=== PATIENT | female | born 1965 | race Caucasian/White ===

== ENCOUNTER 2020-12-20 15:11 | Inpatient (IN) ==
[2020-12-20 15:34] VITALS: BMI 46.0
[2020-12-20] MEDS ORDERED: NS 1000 ML 1,000 ML IV ONE (15:36)
[2020-12-20] MEDS ORDERED: NS 1000 ML 1,000 ML ONE ×2 (15:44→17:52)
[2020-12-20] MEDS ORDERED: APRESOLINE INJ 20 MG VIAL IVP ONE ×2 (16:00→17:48)
[2020-12-20 16:01] LABS: BILIRUBIN,URINE NEGATIVE (NEGATIVE); BLOOD/HEMOGLOBIN,URINE 1+ (NEGATIVE); GLUCOSE, URINE NEGATIVE (NEGATIVE); KETONES,URINE NEGATIVE (NEGATIVE); LEUKOCYTE ESTERASE ,URINE NEGATIVE (NEGATIVE); NITRITES,URINE NEGATIVE (NEGATIVE); PROTEIN,URINE 1+ (NEGATIVE); UROBILINOGEN,URINE NORMAL (NORMAL)
[2020-12-20 16:07] LABS: APPEARANCE,URINE CLEAR (CLEAR); COLOR,URINE YELLOW (YELLOW)
[2020-12-20 16:08] LABS: AMORPHOUS SEDIMENT,UR TRACE /HPF (NEGATIVE); BACTERIA,URINE NEGATIVE /HPF (NEGATIVE); SQUAMOUS EPITHELIAL CELL,UR RARE /HPF (NEGATIVE)
[2020-12-20 16:09] LABS: BASOPHILS % (AUTO) 0.5 % (0.2-1.0); EOSINOPHILS % (AUTO) 0.5 % (0.9-2.9); HEMATOCRIT 39.9 % (36.0-47.0); HEMOGLOBIN 13.1 g/dL (12.0-16.0); LYMPHOCYTES # (AUTO) 1.8 X10^3/uL (1.3-2.9); LYMPHOCYTES % (AUTO) 17.7 % (21.0-51.0); MEAN CORPUSCULAR HEMOGLOBIN 30.3 pg (27.0-34.0); MEAN CORPUSCULAR HGB CONC 32.9 g/dL (33.0-35.0); MEAN PLATELET VOLUME 7.1 fL (7.4-11.0); MONOCYTES # (AUTO) 0.6 x10^3/uL (0.3-0.8); MONOCYTES % (AUTO) 6.1 % (0.0-13.0); NEUTROPHILS # (AUTO) 7.7 x10^3/uL (2.2-4.8); NEUTROPHILS % (AUTO) 75.2 % (42.0-75.0); PLATELET COUNT 289 X10^3/uL (150.0-450.0); RED BLOOD COUNT 4.34 X10^6/uL (3.5-5.4); RED CELL DISTRIBUTION WIDTH 15.1 % (11.6-16.5); WHITE BLOOD COUNT 10.3 X10^3/uL (3.6-10.0)
[2020-12-20] MEDS ORDERED: APRESOLINE INJ 20 MG VIAL ONE ×2 (16:11→17:49)
--- NOTE | 2020-12-20 16:16 | RAD ---
HISTORYHistory of abdominal pain and nauseaSTUDYACUTE ABDOMEN SERIES four viewsCOMPARISONNoneFINDINGSChest: Mild cardiomegaly mediastinum within normal limits, lungs are well expanded and clear, no focal alveolar radiopacitiesAbdomen two views there is no evidence free air. There are multiple air containing central small bowel loops, there is still air throughout the colon, there is a copper T in the lower pelvis, surgical clips in the left upper quadrant, status post cholecystectomyIMPRESSIONNo acute cardiopulmonary disease no free-air.Central prominent small bowel loops, still air in the colon consider early SBO or partial SBO.Electronically signed by: Sophia Ghosh (Dec 20, 2020 16:13:54)
[2020-12-20] MEDS ORDERED: ZOFRAN INJ 4 MG VIAL ONE ×2 (16:17→21:12)
[2020-12-20 16:21] LABS: ALANINE AMINOTRANSFERASE 21 Units/L (12-78); ALBUMIN 3.8 g/dL (3.4-5.0); ALKALINE PHOSPHATASE 78 Units/L (46-116); AMYLASE 35 Units/L (25-115); ASPARTATE AMINO TRANSFERASE 15 Units/L (15-37); BLOOD UREA NITROGEN 10 mg/dL (7-18); CALCIUM 9.2 mg/dL (8.5-10.1); CARBON DIOXIDE 30.6 mmol/L (21-32); CHLORIDE 101 mmol/L (98-107); COR NA(FOR HYPERGLY) 142 mmol/L (136-145); LIPASE 84 Units/L (73-393); SODIUM 141 mmol/L (136-145); TOTAL PROTEIN 7.7 g/dL (6.4-8.2); eGFR NON BLACK RACES > 60 (>60)
[2020-12-20] MEDS ORDERED: ZOFRAN INJ 4 MG VIAL IVP ONE ×2 (16:27→20:39)
--- NOTE | 2020-12-20 16:51 | ED.ABDFE ---
HPI Time Seen Time Seen by Provider: 12/20/20 15:36 PCP Primary Care Physician: NFD Complaint Chief Complaint:: Patient came to ER reports abdominal pain and nausea onset this am. Patient reports no BM in 24 hours and has hx constipation. Self Treatment fo Chief Complaint: none COVID-19 Coronavirus risk:travel/contact w/high risk person: No Has patient experienced Coronavirus symptoms: No Source History Provided: Patient and EMS Mode of arrival Mode of Arrival: EMS Timing Onset of Chief Complaint: 12/20/20 PMH PMH Past Medical History: Yes Past Medical History: Hypertension Past Surgical History: Yes Surgical History: and Cholecystectomy Past Surgical History Comment: gastric bypass, binh removed Family History History of Family Medical Conditions: No Family Medical History: Hypertension Social History Type of Tobacco Use: None Alcohol Use: None Do you use any recreational Drugs:: No Lives With: Family Lives Where: Home Travel Risk Coronavirus risk:travel/contact w/high risk person: No Has patient experienced Coronavirus symptoms: No Infectious screening In the last 2 months have you had wt loss of >10#?: NO Have you had fever, night sweats or hemotysis?: No Have you traveled outside the country in the last 6 months?: No Isolation: Standard ROS Review of Systems Constitutional: See HPI PE Vital Signs Vitals: Temperature 97.8 F Pulse Rate 77 Respiratory Rate 21 Blood Pressure [Left Arm] 172/78 Blood Pressure 184/87 O2 Sat by Pulse Oximetry 96 General Limitations: No Limitations General Appearance: Alert and In No Apparent Distress Head Head Exam: Normal Inspection, Atraumatic and Normocephalic Eyes Eye exam: Normal Appearance and EOMI ENT ENT Exam: Normal Exam Neck Neck Exam: Normal Inspection and Trachea Midline Chest Chest Inspection: Normal Inspection and Symmetric Chest Wall Rise Respiratory Respiratory Exam: Normal Lung Sounds Bilat Respiratory Exam: Bilateral: Clear to Auscultation Cardiovascular Cardiovascular Exam: Regular Rate, Normal Rhythm and Normal Heart Sounds Abdominal Exam Abdominal Exam: Normal Inspection, Soft and Tenderness Abdominal Tenderness: Diffuse and Moderate Back Back Exam: Normal Inspection Extremeties Extremities Exam: Normal Inspection and Full ROM Neurologic Neurological Exam: Alert and Oriented X3 Psychiatric Psychiatric Exam: Normal Affect and Normal Mood Skin Skin Exam: Warm, Dry and Intact COURSE Treatment Treatment: Patient reported that she "felt funny" shortly after IV hydralazine given. Will continue to monitor. EKG without any acute changes. Patient continues to complain of nausea despite intervention in the ED. No episodes of vomiting since being in the ED. Given x-ray findings, CT abd/pe ordered. Patient is slow to drink contrast needed for the study, citing that she is "so nauseated." Will continue to encourage patient to drink contrast. Consultation Consultation Comments: Spoke with Dr. Haley, who accepts patient to his service for admission for bowel obstruction. ROR Labs Reviewed Result Diagrams: 12/20/20 16:03 12/20/20 16:03 Laboratory: WBC 10.3 X10^3/uL (3.6-10.0) H 12/20/20 16:03 RBC 4.34 X10^6/uL (3.5-5.4) 12/20/20 16:03 Hgb 13.1 g/dL (12.0-16.0) 12/20/20 16:03 Hct 39.9 % (36.0-47.0) 12/20/20 16:03 MCV 92.0 fL (80.0-100.0) 12/20/20 16:03 MCH 30.3 pg (27.0-34.0) 12/20/20 16:03 MCHC 32.9 g/dL (33.0-35.0) L 12/20/20 16:03 RDW 15.1 % (11.6-16.5) 12/20/20 16:03 Plt Count 289 X10^3/uL (150.0-450.0) 12/20/20 16:03 MPV 7.1 fL (7.4-11.0) L 12/20/20 16:03 Neut % (Auto) 75.2 % (42.0-75.0) H 12/20/20 16:03 Lymph % (Auto) 17.7 % (21.0-51.0) L 12/20/20 16:03 [place] % (Auto) 6.1 % (0.0-13.0) 12/20/20 16:03 Eos % (Auto) 0.5 % (0.9-2.9) L 12/20/20 16:03 Baso % (Auto) 0.5 % (0.2-1.0) 12/20/20 16:03 Neut # (Auto) 7.7 x10^3/uL (2.2-4.8) H 12/20/20 16:03 Lymph # (Auto) 1.8 X10^3/uL (1.3-2.9) 12/20/20 16:03 [place] # (Auto) 0.6 x10^3/uL (0.3-0.8) 12/20/20 16:03 Eos # (Auto) 0.0 x10^3/uL (0.0-0.2) 12/20/20 16:03 Baso # (Auto) 0.0 X10^3/uL (0.0-0.1) 12/20/20 16:03 Absolute Nucleated RBC 0.0 /100WBC 12/20/20 16:03 Sodium 141 mmol/L (136-145) 12/20/20 16:03 Corrected Sodium 142 mmol/L (136-145) 12/20/20 16:03 Potassium 3.1 mmol/L (3.5-5.1) L 12/20/20 16:03 Chloride 101 mmol/L (98-107) 12/20/20 16:03 Carbon Dioxide 30.6 mmol/L (21-32) 12/20/20 16:03 BUN 10 mg/dL (7-18) 12/20/20 16:03 Creatinine 0.70 mg/dL (0.55-1.02) 12/20/20 16:03 Est GFR (MDRD) Af Amer > 60 (>60) 12/20/20 16:03 Est GFR (MDRD) Non-Af > 60 (>60) 12/20/20 16:03 Glucose 131 mg/dL (65-99) H 12/20/20 16:03 Calcium 9.2 mg/dL (8.5-10.1) 12/20/20 16:03 Corrected Calcium TNP 12/20/20 16:03 Total Bilirubin 0.30 mg/dL (0.2-1.0) 12/20/20 16:03 AST 15 Units/L (15-37) 12/20/20 16:03 ALT 21 Units/L (12-78) 12/20/20 16:03 Alkaline Phosphatase 78 Units/L (46-116) 12/20/20 16:03 Creatine Kinase 49 Units/L (26-192) 12/20/20 16:03 CK-MB (CK-2) 1.2 ng/mL (0-4.0) 12/20/20 16:03 CK/CKMB % Calc 2.5 % (<4) 12/20/20 16:03 Troponin I 0.02 ng/mL (0-1.5) 12/20/20 16:03 Total Protein 7.7 g/dL (6.4-8.2) 12/20/20 16:03 Albumin 3.8 g/dL (3.4-5.0) 12/20/20 16:03 Globulin 3.9 g/dL (2.5-4.5) 12/20/20 16:03 Albumin/Globulin Ratio 1.0 Ratio (1.1-2.1) L 12/20/20 16:03 Amylase 35 Units/L (25-115) 12/20/20 16:03 Lipase 84 Units/L (73-393) 12/20/20 16:03 Specimen Type Catherized urine 12/20/20 15:39 Urine Color Yellow (YELLOW) 12/20/20 15:39 Urine Appearance Clear (CLEAR) 12/20/20 15:39 Urine pH 8.0 (5.0 - 8.0) 12/20/20 15:39 Ur Specific [place] 1.015 (1.000-1.030) 12/20/20 15:39 Urine Protein 1+ (NEGATIVE) 12/20/20 15:39 Urine Glucose (UA) Negative (NEGATIVE) 12/20/20 15:39 Urine Ketones Negative (NEGATIVE) 12/20/20 15:39 Urine Occult Blood 1+ (NEGATIVE) 12/20/20 15:39 Urine Nitrite Negative (NEGATIVE) 12/20/20 15:39 Urine Bilirubin Negative (NEGATIVE) 12/20/20 15:39 Urine Urobilinogen Normal (NORMAL) 12/20/20 15:39 Ur Leukocyte Esterase Negative (NEGATIVE) 12/20/20 15:39 Urine RBC 3-5 /HPF (0-3) A 12/20/20 15:39 Urine WBC None seen /HPF (0-5) 12/20/20 15:39 Ur Squamous Epith Cells Rare /HPF (NEGATIVE) 12/20/20 15:39 Amorphous Sediment Trace /HPF (NEGATIVE) 12/20/20 15:39 Urine Bacteria Negative /HPF (NEGATIVE) 12/20/20 15:39 Ur Culture Indicated? No/not indicated 12/20/20 15:39 XRAY X-ray Results: HISTORY History of abdominal pain and nausea STUDY ACUTE ABDOMEN SERIES four views COMPARISON None FINDINGS Chest: Mild cardiomegaly mediastinum within normal limits, lungs are well expanded and clear, no focal alveolar radiopacities Abdomen two views there is no evidence free air. There are multiple air c ontaining central small bowel loops, there is still air throughout the colon, there is a copper T in the lower pelvis, surgical clips in the left upper quadrant, status post cholecystectomy IMPRESSION No acute cardiopulmonary disease no free-air. Central prominent small bowel loops, still air in the colon consider early SBO or partial SBO. Electronically signed by: Sophia Ghosh (Dec 20, 2020 16:13:54) Opioid Opioid Risk Tool Age ([place] box if 16-45): No History of Preadolescent Sexual Abuse: No Total: 0 Total Score Risk Category: Low Risk Copyright: Valeriy RANDHAWA predicting aberrant behaviors Diagnosis Discharge Problem: Bowel obstruction Qualifiers: Intestinal obstruction type: unspecified Intestinal obstruction extent: unspecified extent Qualified Code(s): K56.609 - Unspecified intestinal obstruction, unspecified as to partial versus complete obstruction
[2020-12-20 17:08] LABS: CKMB % 2.5 % (<4); CREATINE KINASE MB 1.2 ng/mL (0-4.0); TROPONIN I 0.02 ng/mL (0-1.5)
[2020-12-20] MEDS ORDERED: PHENERGAN INJ 25 MG IM ONE ×2 (18:06→18:08)
[2020-12-20] MEDS ORDERED: NS 100 ML IV 100 ML IV ONE (20:26)
--- NOTE | 2020-12-20 22:26 | CT ---
HISTORYPatient came to ER reports abdominal pain and nausea onset this am. Patient reports no BM in 24 hours and has hx constipation.STUDYABDOMEN/PELVIS WITH CONCOMPARISONNoneTECHNIQUEAxial CT images of the abdomen and pelvis were obtained after the administration of IV contrast and reformatted into coronal and sagittal planes for further evaluation.Radiation dose: 1475.10 mGy-cm total DLPFINDINGSAtelectasis in the lung bases.Bilateral breast implants.Status post gastric bypass.Solid visceral organs of the upper abdomen are unremarkable.Status post cholecystectomy.No clinically significant biliary dilatation.Atherosclerotic changes to the abdominal aorta and iliac vessels without aneurysm.Sub cm low-attenuation foci in the anterior interpolar region of the left kidney which is likely a cyst but is too small to characterize.Otherwise, unremarkable appearance of the kidneys.Large lower anterior abdominal wall hernia containing fat without inflammatory changes.Large anterior abdominal wall hernia also contains a partial loop of large bowel; with mild mechanical obstruction.Inflammatory changes surrounding the sigmoid colon adjacent to the anterior abdominal wall hernia as well as mild colonic wall thickening in the large bowel distal to the anterior abdominal wall hernia.Unremarkable appearance of the urinary bladder.Imaged reproductive structures are unremarkable; IUD in the endometrial canal.Unremarkable appearance of the large and small bowel.No evidence of acute appendicitis.No pneumoperitoneum.No significant fluid collection.No adenopathy.No acute osseous abnormality.Mild to moderate degenerative disc disease in the thoracolumbar spine without vertebral body height loss.Moderate facet degenerative changes from L3-S1.IMPRESSIONLarge lower anterior abdominal wall containing a large amount of fat without inflammatory changes. There is also a single loop of large bowel in the left aspect of the hernia which results in a mild mechanical obstruction. There are inflammatory changes adjacent to the sigmoid colon immediately proximal to the hernia as well as mild colonic wall thickening distal to the hernia. Findings could represent the sequela of ischemia.Electronically signed by: Shivam Ramesh (Dec 20, 2020 22:24:57)
[2020-12-20] MEDS ORDERED: TYLENOL 325 MG TAB PO PRN (22:54)
[2020-12-20] MEDS ORDERED: MILK OF MAGNESIA PO PRN (22:54)
[2020-12-20] MEDS: NS 1000 ML 1,000 ML IV SCH (23:10)
[2020-12-21] MEDS: PHENERGAN INJ 25 MG IM PRN ×2 (01:55→08:44)
[2020-12-21] MEDS ORDERED: NS 1000 ML 1,000 ML ONE (03:15)
[2020-12-21] MEDS ORDERED: MORPHINE SULFATE INJ 2 MG INJ ONE (03:17)
[2020-12-21] MEDS ORDERED: ZOFRAN INJ 4 MG VIAL ONE (03:18)
[2020-12-21] MEDS: ZOFRAN INJ 4 MG VIAL IVP PRN ×3 (03:18→21:54)
[2020-12-21] MEDS: MORPHINE SULFATE INJ 2 MG INJ IVP PRN ×3 (03:21→21:53)
[2020-12-21] MEDS: NS 1000 ML 1,000 ML IV SCH ×3 (03:25→20:20)
--- NOTE | 2020-12-21 03:59 | RAD ---
PROCEDURE: Chest X-ray 1 View .HISTORY: NG TUBE PALCEMENT .TECHNIQUE: AP view .COMPARISON: 12/20/2020.TECHNICAL QUALITY: Satisfactory .FINDINGS:NG tube tip in the fundus of the stomach in good position.Heart size upper limits of normal and unchanged from previous study.Mediastinum is unremarkable.Normal central vascularity.No pulmonary consolidation, masses, pleural fluid, or pneumothorax.IMPRESSION:1. Good NG-tube placement.2. Unchanged heart size upper limits of normal.Electronically signed by: Vamsi Pham (Dec 21, 2020 03:56:58)
[2020-12-21 06:44] LABS: BASOPHILS # (AUTO) 0.1 X10^3/uL (0.0-0.1); BASOPHILS % (AUTO) 0.5 % (0.2-1.0); EOSINOPHILS % (AUTO) 0.1 % (0.9-2.9); HEMATOCRIT 43.2 % (36.0-47.0); HEMOGLOBIN 13.9 g/dL (12.0-16.0); LYMPHOCYTES # (AUTO) 1.2 X10^3/uL (1.3-2.9); LYMPHOCYTES % (AUTO) 9.5 % (21.0-51.0); MEAN CORPUSCULAR HEMOGLOBIN 29.6 pg (27.0-34.0); MEAN CORPUSCULAR HGB CONC 32.3 g/dL (33.0-35.0); MEAN CORPUSCULAR VOLUME 91.8 fL (80.0-100.0); MEAN PLATELET VOLUME 7.3 fL (7.4-11.0); MONOCYTES # (AUTO) 0.7 x10^3/uL (0.3-0.8); MONOCYTES % (AUTO) 5.1 % (0.0-13.0); NEUTROPHILS # (AUTO) 11.1 x10^3/uL (2.2-4.8); NEUTROPHILS % (AUTO) 84.8 % (42.0-75.0); PLATELET COUNT 326 X10^3/uL (150.0-450.0); RED BLOOD COUNT 4.71 X10^6/uL (3.5-5.4); RED CELL DISTRIBUTION WIDTH 15.2 % (11.6-16.5); WHITE BLOOD COUNT 13.1 X10^3/uL (3.6-10.0)
[2020-12-21 07:05] LABS: ALANINE AMINOTRANSFERASE 22 Units/L (12-78); ALBUMIN 3.8 g/dL (3.4-5.0); ALKALINE PHOSPHATASE 81 Units/L (46-116); ASPARTATE AMINO TRANSFERASE 17 Units/L (15-37); BLOOD UREA NITROGEN 7 mg/dL (7-18); CALCIUM 9.2 mg/dL (8.5-10.1); CARBON DIOXIDE 30.9 mmol/L (21-32); CHLORIDE 99 mmol/L (98-107); CREATININE 0.65 mg/dL (0.55-1.02); SODIUM 137 mmol/L (136-145); TOTAL PROTEIN 7.8 g/dL (6.4-8.2); eGFR NON BLACK RACES > 60 (>60)
[2020-12-21] MEDS ORDERED: PHENERGAN INJ 25 MG IM ONE (08:40)
[2020-12-21] MEDS ORDERED: POTASSIUM CHL 60 MEQ/NS 0.45% 500 ML IV PRN (10:08)
[2020-12-21] MEDS ORDERED: MICRO K EXTEN CAP 10 MEQ PO PRN (10:08)
[2020-12-21] MEDS ORDERED: K-DUR TAB 20 MEQ PO PRN (10:08)
[2020-12-21] MEDS ORDERED: POTASSIUM CHL 40 MEQ/NS 0.45% 500 ML IV PRN (10:08)
[2020-12-21] MEDS ORDERED: K-RIDER 10 MEQ/NS 100 ML 10 MEQ/100 ML BAG IV PRN (10:08)
[2020-12-21] MEDS ORDERED: POTASSIUM CHLORIDE LIQ 20 MEQ UDC PO PRN (10:08)
[2020-12-21] MEDS ORDERED: KLOR-CON PO PRN (10:08)
--- NOTE | 2020-12-21 10:59 | RAD ---
HISTORYNausea, pain, obstructionSTUDYKUBCOMPARISONCT abdomen December 20, 2020FINDINGSThere is mild gaseous dilatation of scattered segments of small bowel and colon. No localized bowel distention is seen. There is no evidence for mass or ascites. Surgical clips right upper quadrant.IMPRESSIONFindings described are most consistent with a mild nonobstructing ileus. Partial bowel obstruction could produce similar findings, as suggested on recent CT. Continued follow-up suggested.Electronically signed by: HERMES JEFFERSON (Dec 21, 2020 10:56:52)
[2020-12-21] MEDS ORDERED: APRESOLINE TAB 10 MG PO SCH (11:00)
[2020-12-21] MEDS: ZESTRIL TAB 10 MG PO SCH (11:31)
[2020-12-21] MEDS: MAGNESIUM SULFATE 1 GRAM/100 mL PREMIX 1 GM/100 ML BAG IV PRN ×2 (11:31→12:52)
--- NOTE | 2020-12-21 12:28 | DR.H&P ---
H&P History & Physical for Day of: H&P Date: 12/21/20 Chief Complaint Chief Complaint: Abdominal pain Allergies Allergies Allergy/AdvReac Type Severity Reaction Status Date / Time No Known Drug Allergies Allergy Verified 09/08/18 16:02 History of Present Illness History of Present Illness: Pt is a 55 year old female admitted for incarcerated incisional hernia and partial bowel obstruction. Consulted by general surgery for medical management. Pt has history of hypertension that she does not regularly follow with a pcp outpatient. She used to take lisinopril in the past. Patient's SBP was noted to be in the 180-200s. She did receive IV hydralazine 10 mg in the ED. Labs: WBC 13.1 Hgb 13.9 K 3.1 BUN/Cr: 7/0.65 Glucose 110 Plan: will resume lisinopril 10 mg, add amlodipine 10mg. No plan for surgery at this time, Dr Garcia recommended conservative treatment. Patient will need additional pulmonary and cardiac work up prior to surgical intervention. Replace K. Monitor AM labs. Continue pain control. Past Medical History Past Medical History: Hypertension Additional Medical History: Obesity Past Surgical History Surgical History: Cholecystectomy, [facility] Surgery, Weight Loss Surgery and Other Family History Family Medical History: Hypertension Social History Type of Tobacco Use: None Alcohol Use: None Drug Use: None Medications Home Medications: No Known Drug Allergies Allergy (Verified 09/08/18 16:02) CONTINUE taking the following medications NK 12/21/20 [History] Labs Result Diagrams: 12/21/20 06:27 12/21/20 06:27 Labs: Laboratory WBC 13.1 X10^3/uL (3.6-10.0) H 12/21/20 06:27 RBC 4.71 X10^6/uL (3.5-5.4) 12/21/20 06:27 Hgb 13.9 g/dL (12.0-16.0) 12/21/20 06:27 Hct 43.2 % (36.0-47.0) 12/21/20 06:27 MCV 91.8 fL (80.0-100.0) 12/21/20 06:27 MCH 29.6 pg (27.0-34.0) 12/21/20 06:27 MCHC 32.3 g/dL (33.0-35.0) L 12/21/20 06:27 RDW 15.2 % (11.6-16.5) 12/21/20 06:27 Plt Count 326 X10^3/uL (150.0-450.0) 12/21/20 06:27 MPV 7.3 fL (7.4-11.0) L 12/21/20 06:27 Neut % (Auto) 84.8 % (42.0-75.0) H 12/21/20 06:27 Lymph % (Auto) 9.5 % (21.0-51.0) L 12/21/20 06:27 [place] % (Auto) 5.1 % (0.0-13.0) 12/21/20 06:27 Eos % (Auto) 0.1 % (0.9-2.9) L 12/21/20 06:27 Baso % (Auto) 0.5 % (0.2-1.0) 12/21/20 06:27 Neut # (Auto) 11.1 x10^3/uL (2.2-4.8) H 12/21/20 06:27 Lymph # (Auto) 1.2 X10^3/uL (1.3-2.9) L 12/21/20 06:27 [place] # (Auto) 0.7 x10^3/uL (0.3-0.8) 12/21/20 06:27 Eos # (Auto) 0.0 x10^3/uL (0.0-0.2) 12/21/20 06:27 Baso # (Auto) 0.1 X10^3/uL (0.0-0.1) 12/21/20 06:27 Absolute Nucleated RBC 0.0 /100WBC 12/21/20 06:27 Sodium 137 mmol/L (136-145) 12/21/20 06:27 Corrected Sodium TNP 12/21/20 06:27 Potassium 3.1 mmol/L (3.5-5.1) L 12/21/20 06:27 Chloride 99 mmol/L (98-107) 12/21/20 06:27 Carbon Dioxide 30.9 mmol/L (21-32) 12/21/20 06:27 BUN 7 mg/dL (7-18) 12/21/20 06:27 Creatinine 0.65 mg/dL (0.55-1.02) 12/21/20 06:27 Est GFR (MDRD) Af Amer > 60 (>60) 12/21/20 06:27 Est GFR (MDRD) Non-Af > 60 (>60) 12/21/20 06:27 Glucose 110 mg/dL (65-99) H 12/21/20 06:27 Calcium 9.2 mg/dL (8.5-10.1) 12/21/20 06:27 Corrected Calcium TNP 12/21/20 06:27 Magnesium 1.8 mg/dL (1.7-2.9) 12/21/20 06:27 Total Bilirubin 0.40 mg/dL (0.2-1.0) 12/21/20 06:27 AST 17 Units/L (15-37) 12/21/20 06:27 ALT 22 Units/L (12-78) 12/21/20 06:27 Alkaline Phosphatase 81 Units/L (46-116) 12/21/20 06:27 Creatine Kinase 49 Units/L (26-192) 12/20/20 16:03 CK-MB (CK-2) 1.2 ng/mL (0-4.0) 12/20/20 16:03 CK/CKMB % Calc 2.5 % (<4) 12/20/20 16:03 Troponin I 0.02 ng/mL (0-1.5) 12/20/20 16:03 Total Protein 7.8 g/dL (6.4-8.2) 12/21/20 06:27 Albumin 3.8 g/dL (3.4-5.0) 12/21/20 06:27 Globulin 4.0 g/dL (2.5-4.5) 12/21/20 06:27 Albumin/Globulin Ratio 1.0 Ratio (1.1-2.1) L 12/21/20 06:27 Amylase 35 Units/L (25-115) 12/20/20 16:03 Lipase 84 Units/L (73-393) 12/20/20 16:03 Specimen Type Catherized urine 12/20/20 15:39 Urine Color Yellow (YELLOW) 12/20/20 15:39 Urine Appearance Clear (CLEAR) 12/20/20 15:39 Urine pH 8.0 (5.0 - 8.0) 12/20/20 15:39 Ur Specific [place] 1.015 (1.000-1.030) 12/20/20 15:39 Urine Protein 1+ (NEGATIVE) 12/20/20 15:39 Urine Glucose (UA) Negative (NEGATIVE) 12/20/20 15:39 Urine Ketones Negative (NEGATIVE) 12/20/20 15:39 Urine Occult Blood 1+ (NEGATIVE) 12/20/20 15:39 Urine Nitrite Negative (NEGATIVE) 12/20/20 15:39 Urine Bilirubin Negative (NEGATIVE) 12/20/20 15:39 Urine Urobilinogen Normal (NORMAL) 12/20/20 15:39 Ur Leukocyte Esterase Negative (NEGATIVE) 12/20/20 15:39 Urine RBC 3-5 /HPF (0-3) A 12/20/20 15:39 Urine WBC None seen /HPF (0-5) 12/20/20 15:39 Ur Squamous Epith Cells Rare /HPF (NEGATIVE) 12/20/20 15:39 Amorphous Sediment Trace /HPF (NEGATIVE) 12/20/20 15:39 Urine Bacteria Negative /HPF (NEGATIVE) 12/20/20 15:39 Ur Culture Indicated? No/not indicated 12/20/20 15:39 SARS CoV-2 RNA Rapid ARA Negative (NEGATIVE) 12/20/20 22:51 Review of Systems Constitutional: No Symptoms Reported Eyes: No Symptoms Reported ENT: No Symptoms Reported Respiratory: No Symptoms Reported Cardiovascular: No Symptoms Reported Gastrointestinal: Nausea and Abdominal Pain Genitourinary: No Symptoms Reported Musculoskeletal: No Symptoms Reported Skin: No Symptoms Reported Neurological: No Symptoms Reported Physical Exam Vital Signs: Temperature 98.5 F Pulse Rate [Left] 98 Pulse Rate 74 Respiratory Rate 20 Blood Pressure [Right Arm] 186/99 Blood Pressure [Left Arm] 172/78 Blood Pressure 200/94 O2 Sat by Pulse Oximetry 94 Oriented: Normal Eyes: Normal Ear: Normal Nose: Normal Throat: Normal Respiratory: Clear Throughout Cardiovascular: Normal : Normal Auscultation: Bowel Sounds: Normal Palpation: Other (palpable LLQ hernia) Tenderness: Normal Skin: Normal Musculoskeletal: Normal Psychiatric: Normal Mood Description: Calm Speech Pattern: Clear Assessment/Plan (1) Hypertension: Status: Acute Plan: Will start on lisinopril and norvasc. (2) Incarcerated hernia: Status: Acute Plan: Surgery following (3) Bowel obstruction: Qualifiers: Intestinal obstruction extent: unspecified extent Intestinal obstructio n type: unspecified Qualified Code(s): K56.609 - Unspecified intestinal obstruction, unspecified as to partial versus complete obstruction Status: Acute (4) Obesity: Status: Acute Review H&P Reviewed: Yes Patient was examined?: Yes
[2020-12-21] MEDS: NORVASC TAB 10 MG PO SCH (13:05)
[2020-12-22] MEDS: PHENERGAN INJ 25 MG IM PRN (01:10)
[2020-12-22] MEDS: NS 1000 ML 1,000 ML IV SCH (05:36)
[2020-12-22] MEDS: ZOFRAN INJ 4 MG VIAL IVP PRN (05:50)
[2020-12-22 06:24] LABS: BASOPHILS % (AUTO) 0.2 % (0.2-1.0); EOSINOPHILS % (AUTO) 0.1 % (0.9-2.9); HEMATOCRIT 40.8 % (36.0-47.0); HEMOGLOBIN 13.1 g/dL (12.0-16.0); LYMPHOCYTES # (AUTO) 1.8 X10^3/uL (1.3-2.9); LYMPHOCYTES % (AUTO) 17.8 % (21.0-51.0); MEAN CORPUSCULAR HEMOGLOBIN 29.7 pg (27.0-34.0); MEAN CORPUSCULAR VOLUME 92.9 fL (80.0-100.0); MEAN PLATELET VOLUME 7.5 fL (7.4-11.0); MONOCYTES # (AUTO) 0.7 x10^3/uL (0.3-0.8); NEUTROPHILS # (AUTO) 7.8 x10^3/uL (2.2-4.8); NEUTROPHILS % (AUTO) 74.9 % (42.0-75.0); PLATELET COUNT 338 X10^3/uL (150.0-450.0); RED BLOOD COUNT 4.39 X10^6/uL (3.5-5.4); RED CELL DISTRIBUTION WIDTH 15.4 % (11.6-16.5); WHITE BLOOD COUNT 10.4 X10^3/uL (3.6-10.0)
[2020-12-22 06:38] LABS: ALANINE AMINOTRANSFERASE 19 Units/L (12-78); ALBUMIN 3.5 g/dL (3.4-5.0); ALKALINE PHOSPHATASE 71 Units/L (46-116); ASPARTATE AMINO TRANSFERASE 15 Units/L (15-37); BLOOD UREA NITROGEN 11 mg/dL (7-18); CALCIUM 9.1 mg/dL (8.5-10.1); CARBON DIOXIDE 31.6 mmol/L (21-32); CHLORIDE 104 mmol/L (98-107); CREATININE 0.73 mg/dL (0.55-1.02); MAGNESIUM 2.4 mg/dL (1.7-2.9); SODIUM 141 mmol/L (136-145); TOTAL PROTEIN 7.2 g/dL (6.4-8.2); eGFR NON BLACK RACES > 60 (>60)
[2020-12-22] MEDS: NORVASC TAB 10 MG PO SCH (08:40)
[2020-12-22] MEDS: ZESTRIL TAB 10 MG PO SCH (08:40)
[2020-12-22] MEDS ORDERED: PEPCID 20 MG IV PREMIX* 20 MG/50 ML BAG IV SCH (09:00)
--- NOTE | 2020-12-22 11:26 | PCM.PROG ---
Progress Note Progress Note for Day of Date of Exam: 12/22/20 Subjective Subjective: Pt is a 55 year old female past medical history Hypertension, admitted for incarcerated incisional hernia and partial bowel obstruction. Consulted by general surgery for medical management. This morning patient is resting in bed, no acute events overnight. Yesterday she was started on norvasc 10mg and lisinopril 10mg. Reviewing BP trend yesterday revealed significant improvement and appropriate control of blood pressure. Labs: WBC 10.4, Hgb 13.1, K 3.8, BUN/Cr: 11/0.73 Glucose 94 Plan: Continue lisinopril 10 mg, amlodipine 10mg. No plan for surgery at this time, Dr Garcia recommended conservative treatment. Patient will need additional pulmonary and cardiac work up prior to surgical intervention. Continue to monitor and follow up labs/imaging in the morning. Past Medical Family Social History Past Med/Fam/Surg Hx: No changes since H&P Allergies: Allergies No Known Drug Allergies Allergy (Verified 09/08/18 16:02) Review of Systems ROS: No change since H&P Vital Signs and I&O's Vital Signs: Temperature 98.7 F Pulse Rate [Left] 88 Pulse Rate 74 Respiratory Rate 20 Blood Pressure [Right Arm] 163/75 Blood Pressure [Left Arm] 172/78 Blood Pressure 200/94 O2 Sat by Pulse Oximetry 94 Intake and Output: Intake & Output 12/19/20 12/20/20 12/21/20 12/22/20 23:59 23:59 23:59 23:59 Intake Total 2059 640 / 640 Balance 2059 640 / 640 Physical Exam Oriented: Normal Eyes: Normal Ear: Normal Nose: Normal Throat: Normal Respiratory: Normal Cardiovascular: Normal : Normal Auscultation: Bowel Sounds: Normal Tenderness: Normal Skin: Normal Musculoskeletal: Normal Psychiatric: Normal Mood Description: Calm Speech Pattern: Clear and Appropriate Laboratory and Diagnostics Result Diagrams: 12/22/20 05:26 12/22/20 05:21 Labs: Laboratory WBC 10.4 X10^3/uL (3.6-10.0) H 12/22/20 05:26 RBC 4.39 X10^6/uL (3.5-5.4) 12/22/20 05:26 Hgb 13.1 g/dL (12.0-16.0) 12/22/20 05:26 Hct 40.8 % (36.0-47.0) 12/22/20 05:26 MCV 92.9 fL (80.0-100.0) 12/22/20 05:26 MCH 29.7 pg (27.0-34.0) 12/22/20 05:26 MCHC 32.0 g/dL (33.0-35.0) L 12/22/20 05:26 RDW 15.4 % (11.6-16.5) 12/22/20 05:26 Plt Count 338 X10^3/uL (150.0-450.0) 12/22/20 05:26 MPV 7.5 fL (7.4-11.0) 12/22/20 05:26 Neut % (Auto) 74.9 % (42.0-75.0) 12/22/20 05:26 Lymph % (Auto) 17.8 % (21.0-51.0) L 12/22/20 05:26 [place] % (Auto) 7.0 % (0.0-13.0) 12/22/20 05:26 Eos % (Auto) 0.1 % (0.9-2.9) L 12/22/20 05:26 Baso % (Auto) 0.2 % (0.2-1.0) 12/22/20 05:26 Neut # (Auto) 7.8 x10^3/uL (2.2-4.8) H 12/22/20 05:26 Lymph # (Auto) 1.8 X10^3/uL (1.3-2.9) 12/22/20 05:26 [place] # (Auto) 0.7 x10^3/uL (0.3-0.8) 12/22/20 05:26 Eos # (Auto) 0.0 x10^3/uL (0.0-0.2) 12/22/20 05:26 Baso # (Auto) 0.0 X10^3/uL (0.0-0.1) 12/22/20 05:26 Absolute Nucleated RBC 0.0 /100WBC 12/22/20 05:26 Sodium 141 mmol/L (136-145) 12/22/20 05:21 Corrected Sodium TNP 12/22/20 05:21 Potassium 3.8 mmol/L (3.5-5.1) 12/22/20 05:21 Chloride 104 mmol/L (98-107) 12/22/20 05:21 Carbon Dioxide 31.6 mmol/L (21-32) 12/22/20 05:21 BUN 11 mg/dL (7-18) 12/22/20 05:21 Creatinine 0.73 mg/dL (0.55-1.02) 12/22/20 05:21 Est GFR (MDRD) Af Amer > 60 (>60) 12/22/20 05:21 Est GFR (MDRD) Non-Af > 60 (>60) 12/22/20 05:21 Glucose 94 mg/dL (65-99) 12/22/20 05:21 Calcium 9.1 mg/dL (8.5-10.1) 12/22/20 05:21 Corrected Calcium TNP 12/22/20 05:21 Magnesium 2.4 mg/dL (1.7-2.9) 12/22/20 05:21 Total Bilirubin 0.50 mg/dL (0.2-1.0) 12/22/20 05:21 AST 15 Units/L (15-37) 12/22/20 05:21 ALT 19 Units/L (12-78) 12/22/20 05:21 Alkaline Phosphatase 71 Units/L (46-116) 12/22/20 05:21 Creatine Kinase 49 Units/L (26-192) 12/20/20 16:03 CK-MB (CK-2) 1.2 ng/mL (0-4.0) 12/20/20 16:03 CK/CKMB % Calc 2.5 % (<4) 12/20/20 16:03 Troponin I 0.02 ng/mL (0-1.5) 12/20/20 16:03 Total Protein 7.2 g/dL (6.4-8.2) 12/22/20 05:21 Albumin 3.5 g/dL (3.4-5.0) 12/22/20 05:21 Globulin 3.7 g/dL (2.5-4.5) 12/22/20 05:21 Albumin/Globulin Ratio 0.9 Ratio (1.1-2.1) L 12/22/20 05:21 Amylase 35 Units/L (25-115) 12/20/20 16:03 Lipase 84 Units/L (73-393) 12/20/20 16:03 Specimen Type Catherized urine 12/20/20 15:39 Urine Color Yellow (YELLOW) 12/20/20 15:39 Urine Appearance Clear (CLEAR) 12/20/20 15:39 Urine pH 8.0 (5.0 - 8.0) 12/20/20 15:39 Ur Specific [place] 1.015 (1.000-1.030) 12/20/20 15:39 Urine Protein 1+ (NEGATIVE) 12/20/20 15:39 Urine Glucose (UA) Negative (NEGATIVE) 12/20/20 15:39 Urine Ketones Negative (NEGATIVE) 12/20/20 15:39 Urine Occult Blood 1+ (NEGATIVE) 12/20/20 15:39 Urine Nitrite Negative (NEGATIVE) 12/20/20 15:39 Urine Bilirubin Negative (NEGATIVE) 12/20/20 15:39 Urine Urobilinogen Normal (NORMAL) 12/20/20 15:39 Ur Leukocyte Esterase Negative (NEGATIVE) 12/20/20 15:39 Urine RBC 3-5 /HPF (0-3) A 12/20/20 15:39 Urine WBC None seen /HPF (0-5) 12/20/20 15:39 Ur Squamous Epith Cells Rare /HPF (NEGATIVE) 12/20/20 15:39 Amorphous Sediment Trace /HPF (NEGATIVE) 12/20/20 15:39 Urine Bacteria Negative /HPF (NEGATIVE) 12/20/20 15:39 Ur Culture Indicated? No/not indicated 12/20/20 15:39 SARS CoV-2 RNA Rapid ARA Negative (NEGATIVE) 12/20/20 22:51 Plan (1) Hypertension: Status: Acute Plan: Will start on lisinopril and norvasc. (2) Incarcerated hernia: Status: Acute Plan: Surgery following (3) Bowel obstruction: Status: Acute Qualifiers: Intestinal obstruction extent: unspecified extent Intestinal obstruction type: unspecified Qualified Code(s): K56.609 - Unspecified in testinal obstruction, unspecified as to partial versus complete obstruction (4) Obesity: Status: Acute
[2020-12-22] MEDS ORDERED: PROTONIX INJ 40 MG VIAL IVP SCH (12:00)
[2020-12-22 12:06] LABS: CHOL/HDL RATIO 2.8 (0.0-5.0); T4 (THYROXINE) 8.9 ug/dL (4.7-13.3); TSH (3RD GENERATION) 0.161 uIU/mL (0.358-3.74)
--- NOTE | 2020-12-22 12:46 | RAD ---
Exam:KUBIndication: BOWEL OBSTRUCTION, NAUSEAS, ABDOMINAL PAINSComparison: [None available]Findings: [Examination is significant limited by patient body habitus. The bowel gas pattern is unremarkable, specifically there is no radiographic evidence to suggest an obstruction. No free air or pneumatosis.No definite mass or abnormal calcification within the abdomen or pelvis.No acute osseous abnormality. An IUD is noted within the pelvis. Previous cholecystectomy.Impression:Significantly limited evaluation of the abdomen and pelvis given patient body habitus, no gross obstructive bowel gas pattern. Correlate with clinical findings and potentially CT examination with IV and oral contrast based on clinical necessity.]Electronically signed by: COLLEEN ELLIS (Dec 22, 2020 12:44:37)
[2020-12-22 13:03] VITALS: BP 130/64
== END 2020-12-22 14:25 | disposition home or self-care (01) | DRG 395 ==
LOC: ER 15:11 → OBS 22:54 → MED/SURG 12-21 08:50
PROVIDERS: ADMIT Surgery; ATTEND Surgery
DX: K43.0 Incisional hernia with obstruction, without gangrene; I10 Essential (primary) hypertension; E66.01 Morbid (severe) obesity due to excess calories; R94.31 Abnormal electrocardiogram [ECG] [EKG]; Z20.822 Contact with and (suspected) exposure to COVID-19; Z98.84 Bariatric surgery status

== ENCOUNTER 2023-08-18 15:07 | Inpatient (IN) ==
--- NOTE | 2023-08-18 15:21 | DR.NAUSEAF ---
HPI Time Seen Time Seen by Provider: 08/18/23 15:21 Complaints Chief Complaint Doctors Comments: 57 y/o female presents for evaluation. Started feeling ill early this AM. Having nausea and dry heaving. She has a chronic hernia left inguinal region, is more painful today. Having loose bowels today as well. Denies any fevers or chills. No URI symptoms. Reviewed Nurses Notes Reviewed: Yes Source History Provided: Patient PMH PMH Past Medical History: Hypertension Past Surgical History: Yes Surgical History: Cholecystectomy, [employer] Surgery, Weight Loss Surgery and Other Family History Family Medical History: Hypertension Social History Do you use any recreational Drugs:: No ROS Review of Systems Constitutional: No Symptoms Reported Eyes: No Symptoms Reported ENTM: No Symptoms Reported Respiratoy: No Symptoms Reported Cardiovascular: No Symptoms Reported Gastrointestinal/Abdominal: Abdominal Pain, Diarrhea, Nausea and Vomiting Genitourinary: No Symptoms Reported Neurological: No Symptoms Reported Musculoskeletal: No Symptoms Reported Integumentary: No Symptoms Reported Hematologic/Lymphatic: No Symptoms Reported All Other Systems: Reviewed and Negative PE Vital Signs Vitals: Vital Signs Temperature 97.9 F Pulse Rate 81 Pulse Rate 85 Pulse Rate 85 Respiratory Rate 19 Respiratory Rate 15 Respiratory Rate 20 Respiratory Rate 16 Blood Pressure 158/91 Blood Pressure 168/86 O2 Sat by Pulse Oximetry 93 O2 Sat by Pulse Oximetry 99 O2 Sat by Pulse Oximetry 98 General General Appearance: Alert and In No Apparent Distress Eyes Eye exam: PERRL and EOMI ENT ENT Exam: Mucous Membranes Moist Neck Neck Exam: Normal Inspection Respiratory Respiratory Exam: Normal Lung Sounds Bilat; negative Accessory Muscle Use or Respiratory Distress Cardiovascular Cardiovascular Exam: Regular Rate, Normal Rhythm and Normal Heart Sounds Abdominal Exam Abdominal Exam: Soft and Tenderness (L inguinal region, with firm , tender hernia.) Extremities Extremities Exam: Normal Inspection; negative Edema Neurologic Neurological Exam: Alert, Oriented X3 and CN II-XII Intact; negative Motor Sensory Deficit Skin Skin Exam: Warm and Dry COURSE Treatment Treatment: 57 y/o female with nausea, dry heaving, diarrhea this AM. Having increasing pain of her left inguinal hernia. Work-up initiated. Patient given IV fluids, IV Zofran/morphine. Labs overall acceptable. CT abd/pelvis -large hernia to be present, with bowel contents, with inflammatory changes, cannot rule out developing ischemia. Discussed with surgery, Dr. Rogers, he will see the patient, recommends admission to medical service. Discussed with Dr. Hedrick, on-call, accepts admission. ROR Labs Reviewed Laboratory Results Reviewed?: Yes 08/19/23 06:17 08/19/23 06:17 Laboratory: WBC 9.1 X10^3/uL (3.6-10.0) 08/18/23 15:30 RBC 4.24 X10^6/uL (3.5-5.4) 08/18/23 15:30 Hgb 14.3 g/dL (12.0-16.0) 08/18/23 15:30 Hct 43.2 % (36.0-47.0) 08/18/23 15:30 MCV 101.7 fL (80.0-100.0) H 08/18/23 15:30 MCH 33.8 pg (27.0-34.0) 08/18/23 15:30 MCHC 33.2 g/dL (33.0-35.0) 08/18/23 15:30 RDW 13.0 % (11.6-16.5) 08/18/23 15:30 Plt Count 284 X10^3/uL (150.0-450.0) 08/18/23 15:30 MPV 6.9 fL (7.4-11.0) L 08/18/23 15:30 Neut % (Auto) 81.9 % (42.0-75.0) H 08/18/23 15:30 Lymph % (Auto) 12.4 % (21.0-51.0) L 08/18/23 15:30 [place] % (Auto) 5.3 % (0.0-13.0) 08/18/23 15:30 Eos % (Auto) 0.0 % (0.9-2.9) L 08/18/23 15:30 Baso % (Auto) 0.4 % (0.2-1.0) 08/18/23 15:30 Neut # (Auto) 7.4 x10^3/uL (2.2-4.8) H 08/18/23 15:30 Lymph # (Auto) 1.1 X10^3/uL (1.3-2.9) L 08/18/23 15:30 [place] # (Auto) 0.5 x10^3/uL (0.3-0.8) 08/18/23 15:30 Eos # (Auto) 0.0 x10^3/uL (0.0-0.2) 08/18/23 15:30 Baso # (Auto) 0.0 X10^3/uL (0.0-0.1) 08/18/23 15:30 Absolute Nucleated RBC 0.1 /100WBC 08/18/23 15:30 Sodium 140 mmol/L (136-145) 08/18/23 15:30 Corrected Sodium TNP 08/18/23 15:30 Potassium 3.6 mmol/L (3.5-5.1) 08/18/23 15:30 Chloride 99 mmol/L (98-107) 08/18/23 15:30 Carbon Dioxide 32.0 mmol/L (21-32) 08/18/23 15:30 BUN 11 mg/dL (7-18) 08/18/23 15:30 Creatinine 0.72 mg/dL (0.55-1.02) 08/18/23 15:30 Est GFR (MDRD) Af Amer > 60 (>60) 08/18/23 15:30 Est GFR (MDRD) Non-Af > 60 (>60) 08/18/23 15:30 Glucose 108 mg/dL (65-99) H 08/18/23 15:30 Calcium 9.0 mg/dL (8.5-10.1) 08/18/23 15:30 Corrected Calcium TNP 08/18/23 15:30 Magnesium 2.0 mg/dL (2.0-2.9) 08/18/23 15:30 Total Bilirubin 0.40 mg/dL (0.2-1.0) 08/18/23 15:30 AST 17 Units/L (15-37) 08/18/23 15:30 ALT 17 Units/L (12-78) 08/18/23 15:30 Alkaline Phosphatase 86 Units/L (46-116) 08/18/23 15:30 Total Protein 7.8 g/dL (6.4-8.2) 08/18/23 15:30 Albumin 4.0 g/dL (3.4-5.0) 08/18/23 15:30 Globulin 3.8 g/dL (2.5-4.5) 08/18/23 15:30 Albumin/Globulin Ratio 1.1 Ratio (1.1-2.1) 08/18/23 15:30 Lipase 48 Units/L (73-393) L 08/18/23 15:30 Specimen Type Clean catch urine 08/18/23 17:06 Urine Color Straw (YELLOW) 08/18/23 17:06 Urine Appearance Clear (CLEAR) 08/18/23 17:06 Urine pH 7.0 (5.0 - 8.0) 08/18/23 17:06 Ur Specific [place] 1.015 (1.000-1.030) 08/18/23 17:06 Urine Protein Negative (NEGATIVE) 08/18/23 17:06 Urine Glucose (UA) Negative (NEGATIVE) 08/18/23 17:06 Urine Ketones Negative (NEGATIVE) 08/18/23 17:06 Urine Blood Negative (NEGATIVE) 08/18/23 17:06 Urine Nitrite Negative (NEGATIVE) 08/18/23 17:06 Urine Bilirubin Negative (NEGATIVE) 08/18/23 17:06 Urine Urobilinogen Normal (NORMAL) 08/18/23 17:06 Ur Leukocyte Esterase Negative (NEGATIVE) 08/18/23 17:06 XRAY XRAY Interpreted by: Radiologist X-ray Results: EXAM: CT ABDOMEN AND PELVIS WITH INTRAVENOUS CONTRAST HISTORY: Nausea, vomiting, diarrhea. TECHNIQUE: Spiral axial CT images are obtained through the abdomen and pelvis without the administration of oral contrast and with the administration of intravenous contrast. Additional coronal and sagittal reformatted images are reconstructed. DOSIMETRY: Total DLP 663.61 mGycm; CTDI 12.62 mGy COMPARISON: None available. FINDINGS: GASTROINTESTINAL TRACT: There is a large (approximately 24 cm transverse by 7 cm AP by 9.9 cm CC) ventral anterior pelvic wall hernia containing loops of loops of descending colon and sigmoid colon, with thickened appearance of bowel loops immediately proximal to and within the hernia and pericolonic stranding which could represent postinflammatory change or stercoral colitis and/or early ischemic disease in the appropriate clinical setting. Axial image 64-86; coronal image 7-26. Abundant fecal material is seen throughout the large bowel loops in keeping with constipation. No evidence for pneumatosis intestinalis, portal venous air or free intraperitoneal air. Status post gastric bypass surgery. No evidence of gross anastomotic dehiscence seen. There is no evidence for bowel bowel obstruction, or diverticulitis. A normal-appearing appendix is seen. GENITOURINARY SYSTEM: There are few small scattered left renal cysts; largest in the left middle to lower pole kidney measuring 1.2 cm a tiny 3 mm nonobstructing right middle pole renal calculus is suspected. Axial image 40; coronal image 34.. The kidneys are otherwise unremarkable. There is no ureteral calculus or stigmata of obstructive uropathy. The urinary bladder is grossly unremarkable for a non-dedicated exam. REPRODUCTIVE SYSTEM: A T-shaped IUD is noted in situ. The uterus and adnexa appear grossly unremarkable for a CT scan. Consider follow-up dedicated imaging as clinically warranted. BILIARY SYSTEM: The patient is status post cholecystectomy. There is intrahepatic and extrahepatic biliary ductal dilatation (CBD measures up to 2.5 cm, which is more than is expected for postcholecystectomy state), without discernible obstructing stone or pancreatic head mass lesion; cannot exclude biliary obstruction secondary to occult mucosal lesion at the ampulla of Vater. Coronal image 23-29. Consider follow-up ERCP (with brush biopsy), MRCP or HIDA scan if obstructive biliary disease is clinically suspected. There is up to 5.5 mm pancreatic ductal dilatation. CT ABDOMEN: Severe aortoiliac atherosclerotic disease, without aneurysm formation or dissection. There is an approximately 8 mm inferior splenic cyst; otherwise unremarkable spleen. The liver, pancreas, adrenal glands, and inferior vena cava are within normal limits for a CT scan. There is no intra- abdominal or retroperitoneal lymphadenopathy, free fluid, or free air seen. No abdominal herniation is noted. CT PELVIS: No pelvic sidewall or inguinal lymphadenopathy is seen. No inguinal herniation is noted. No free fluid or free air is seen. BONES AND JOINTS: Severe multilevel DDD is seen throughout the distal thoracic and lumbar spine with mild lumbar levoscoliosis. Moderately severe osteoarthritis is seen in both hips. The visualized bony structures are within normal limits. LUNG BASES: There is mild cardiomegaly with four-chamber enlargement. There is up to 5 cm fusiform aneurysmal dilatation of the ascending thoracic aorta (partially imaged). The lung bases are clear. Bilateral breast implants are noted. IMPRESSION: 1. Large (approximately 24 cm transverse by 7 cm AP by 9.9 cm CC) ventral anterior pelvic wall hernia containing loops of loops of descending colon and sigmoid colon, with thickened appearance of bowel loops immediately proximal to and within the hernia and pericolonic stranding which could represent postinfl ammatory change or stercoral colitis and/or early ischemic disease in the appropriate clinical setting. Axial image 64-86; coronal image 7-26. 2. Abundant fecal material is seen throughout the large bowel loops in keeping with constipation. 3. No evidence for pneumatosis intestinalis, portal venous air or free intraperitoneal air. 4. Status post gastric bypass surgery. No evidence of gross anastomotic dehiscence seen. 5. No evidence for pyelonephritis, renal stone disease or obstructive uropathy. 6. Status post cholecystectomy with intrahepatic and extrahepatic biliary ductal dilatation (CBD measures up to 2.5 cm, which is more than is expected for postcholecystectomy state), without discernible obstructing stone or pancreatic head mass lesion; cannot exclude biliary obstruction secondary to occult mucosal lesion at the ampulla of Vater. Coronal image 23-29. Consider follow-up ERCP (with brush biopsy), MRCP or HIDA scan if obstructive biliary disease is clinically suspected. 7. Up to 5.5 mm pancreatic ductal dilatation. 8. No free fluid, free air, or lymphadenopathy seen. 9. Up to 5 cm fusiform aneurysmal dilatation of the ascending thoracic aorta (partially imaged). THIS IS AN ELECTRONICALLY VERIFIED FINAL REPORT 08/18/2023 5:37 PM - Electronically signed by Stephanie Rees Opioid Opioid Risk Tool Age ([place] box if 16-45): No History of Preadolescent Sexual Abuse: No Total: 0 Total Score Risk Category: Low Risk Copyright: Valeriy RANDHAWA predicting aberrant behaviors Discharge Plan Diagnosis Discharge Problem: Incarcerated hernia Discharge Plan Patient Disposition: 09 ADMITTED INPATIENT Condition: Stable
[2023-08-18] MEDS ORDERED: ZOFRAN INJ 4 MG VIAL IVP ONE ×2 (15:30→18:45)
[2023-08-18] MEDS ORDERED: NS 1,000 ML IV 1,000 ML IV ONE (15:30)
[2023-08-18] MEDS ORDERED: MORPHINE SULFATE INJ 4 MG IVP ONE (15:44)
[2023-08-18] MEDS ORDERED: NS 1,000 ML IV 1,000 ML ONE (15:44)
[2023-08-18] MEDS ORDERED: ZOFRAN INJ 4 MG VIAL ONE ×2 (15:44→18:47)
[2023-08-18 15:47] LABS: BASOPHILS % (AUTO) 0.4 % (0.2-1.0); HEMATOCRIT 43.2 % (36.0-47.0); HEMOGLOBIN 14.3 g/dL (12.0-16.0); LYMPHOCYTES # (AUTO) 1.1 X10^3/uL (1.3-2.9); LYMPHOCYTES % (AUTO) 12.4 % (21.0-51.0); MEAN CORPUSCULAR HEMOGLOBIN 33.8 pg (27.0-34.0); MEAN CORPUSCULAR HGB CONC 33.2 g/dL (33.0-35.0); MEAN CORPUSCULAR VOLUME 101.7 fL (80.0-100.0); MEAN PLATELET VOLUME 6.9 fL (7.4-11.0); MONOCYTES # (AUTO) 0.5 x10^3/uL (0.3-0.8); MONOCYTES % (AUTO) 5.3 % (0.0-13.0); NEUTROPHILS # (AUTO) 7.4 x10^3/uL (2.2-4.8); NEUTROPHILS % (AUTO) 81.9 % (42.0-75.0); PLATELET COUNT 284 X10^3/uL (150.0-450.0); RED BLOOD COUNT 4.24 X10^6/uL (3.5-5.4); WHITE BLOOD COUNT 9.1 X10^3/uL (3.6-10.0)
[2023-08-18] MEDS ORDERED: MORPHINE SULFATE INJ 4 MG ONE (15:49)
[2023-08-18 15:53] LABS: ALANINE AMINOTRANSFERASE 17 Units/L (12-78); ALKALINE PHOSPHATASE 86 Units/L (46-116); ASPARTATE AMINO TRANSFERASE 17 Units/L (15-37); BLOOD UREA NITROGEN 11 mg/dL (7-18); CHLORIDE 99 mmol/L (98-107); CREATININE 0.72 mg/dL (0.55-1.02); GLUCOSE 108 mg/dL (65-99); LIPASE 48 Units/L (73-393); POTASSIUM 3.6 mmol/L (3.5-5.1); SODIUM 140 mmol/L (136-145); TOTAL PROTEIN 7.8 g/dL (6.4-8.2); eGFR NON BLACK RACES > 60 (>60)
[2023-08-18 17:15] LABS: BILIRUBIN,URINE NEGATIVE (NEGATIVE); BLOOD/HEMOGLOBIN,URINE NEGATIVE (NEGATIVE); GLUCOSE, URINE NEGATIVE (NEGATIVE); KETONES,URINE NEGATIVE (NEGATIVE); LEUKOCYTE ESTERASE ,URINE NEGATIVE (NEGATIVE); NITRITES,URINE NEGATIVE (NEGATIVE); PROTEIN,URINE NEGATIVE (NEGATIVE); UROBILINOGEN,URINE NORMAL (NORMAL)
[2023-08-18 17:22] LABS: APPEARANCE,URINE CLEAR (CLEAR); COLOR,URINE STRAW (YELLOW)
--- NOTE | 2023-08-18 17:40 | CT ---
EXAM: CT ABDOMEN AND PELVIS WITH INTRAVENOUS CONTRASTHISTORY: Nausea, vomiting, diarrhea.TECHNIQUE: Spiral axial CT images are obtained through the abdomen and pelvis without the administration of oral contrast and with the administration of intravenous contrast. Additional coronal and sagittal reformatted images are reconstructed.DOSIMETRY: Total DLP 663.61 mGycm; CTDI 12.62 mGyCOMPARISON: None available.FINDINGS:GASTROINTESTINAL TRACT: There is a large (approximately 24 cm transverse by 7 cm AP by 9.9 cm CC) ventral anterior pelvic wall hernia containing loops of loops of descending colon and sigmoid colon, with thickened appearance of bowel loops immediately proximal to and within the hernia and pericolonic stranding which could represent postinflammatory change or stercoral colitis and/or early ischemic disease in the appropriate clinical setting. Axial image 64-86; coronal image 7-26. Abundant fecal material is seen throughout the large bowel loops in keeping with constipation. No evidence for pneumatosis intestinalis, portal venous air or free intraperitoneal air. Status post gastric bypass surgery. No evidence of gross anastomotic dehiscence seen. There is no evidence for bowel bowel obstruction, or diverticulitis. A normal-appearing appendix is seen.GENITOURINARY SYSTEM: There are few small scattered left renal cysts; largest in the left middle to lower pole kidney measuring 1.2 cm a tiny 3 mm nonobstructing right middle pole renal calculus is suspected. Axial image 40; coronal image 34.. The kidneys are otherwise unremarkable. There is no ureteral calculus or stigmata of obstructive uropathy. The urinary bladder is grossly unremarkable for a non-dedicated exam.REPRODUCTIVE SYSTEM: A T-shaped IUD is noted in situ. The uterus and adnexa appear grossly unremarkable for a CT scan. Consider follow-up dedicated imaging as clinically warranted.BILIARY SYSTEM: The patient is status post cholecystectomy. There is intrahepatic and extrahepatic biliary ductal dilatation (CBD measures up to 2.5 cm, which is more than is expected for postcholecystectomy state), without discernible obstructing stone or pancreatic head mass lesion; cannot exclude biliary obstruction secondary to occult mucosal lesion at the ampulla of Vater. Coronal image 23-29. Consider follow-up ERCP (with brush biopsy), MRCP or HIDA scan if obstructive biliary disease is clinically suspected. There is up to 5.5 mm pancreatic ductal dilatation.CT ABDOMEN: Severe aortoiliac atherosclerotic disease, without aneurysm formation or dissection. There is an approximately 8 mm inferior splenic cyst; otherwise unremarkable spleen. The liver, pancreas, adrenal glands, and inferior vena cava are within normal limits for a CT scan. There is no intra-abdominal or retroperitoneal lymphadenopathy, free fluid, or free air seen. No abdominal herniation is noted.CT PELVIS: No pelvic sidewall or inguinal lymphadenopathy is seen. No inguinal herniation is noted. No free fluid or free air is seen.BONES AND JOINTS: Severe multilevel DDD is seen throughout the distal thoracic and lumbar spine with mild lumbar levoscoliosis. Moderately severe osteoarthritis is seen in both hips. The visualized bony structures are within normal limits.LUNG BASES: There is mild cardiomegaly with four-chamber enlargement. There is up to 5 cm fusiform aneurysmal dilatation of the ascending thoracic aorta (partially imaged). The lung bases are clear. Bilateral breast implants are noted.IMPRESSION:1. Large (approximately 24 cm transverse by 7 cm AP by 9.9 cm CC) ventral anterior pelvic wall hernia containing loops of loops of descending colon and sigmoid colon, with thickened appearance of bowel loops immediately proximal to and within the hernia and pericolonic stranding which could represent postinflammatory change or stercoral colitis and/or early ischemic disease in the appropriate clinical setting. Axial image 64-86; coronal image 7-26.2. Abundant fecal material is seen throughout the large bowel loops in keeping with constipation.3. No evidence for pneumatosis intestinalis, portal venous air or free intraperitoneal air.4. Status post gastric bypass surgery. No evidence of gross anastomotic dehiscence seen.5. No evidence for pyelonephritis, renal stone disease or obstructive uropathy.6. Status post cholecystectomy with intrahepatic and extrahepatic biliary ductal dilatation (CBD measures up to 2.5 cm, which is more than is expected for postcholecystectomy state), without discernible obstructing stone or pancreatic head mass lesion; cannot exclude biliary obstruction secondary to occult mucosal lesion at the ampulla of Vater. Coronal image 23-29. Consider follow-up ERCP (with brush biopsy), MRCP or HIDA scan if obstructive biliary disease is clinically suspected.7. Up to 5.5 mm pancreatic ductal dilatation.8. No free fluid, free air, or lymphadenopathy seen.9. Up to 5 cm fusiform aneurysmal dilatation of the ascending thoracic aorta (partially imaged).THIS IS AN ELECTRONICALLY VERIFIED FINAL [id number]/2023 5:37 PM - Electronically signed by Stephanie Rees
[2023-08-18] MEDS ORDERED: CONSULT PHARMACY - POTASSIUM & MAGNESIUM XX SCH ×2 (20:28→23:00)
[2023-08-18] MEDS ORDERED: K-DUR TAB 20 MEQ PO SCH (21:00)
[2023-08-18] MEDS: ZOFRAN INJ 4 MG VIAL IVP PRN (21:03)
[2023-08-18] MEDS: D5 1/2 NS 1,000 ML 1,000 ML IV SCH (21:03)
[2023-08-18] MEDS: K-RIDER 10 MEQ/NS 100 ML 10 MEQ/100 ML BAG IV SCH ×2 (21:14→22:06)
[2023-08-18] MEDS: PHENERGAN INJ 25 MG IM PRN (22:20)
[2023-08-19] MEDS: PEPCID 20 MG VIAL 20 MG in NS 50 ML IV 50 ML IV SCH ×3 (00:34→20:27)
[2023-08-19] MEDS: MORPHINE SULFATE INJ 4 MG IVP PRN ×3 (04:33→20:20)
[2023-08-19] MEDS: ZOFRAN INJ 4 MG VIAL IVP PRN ×3 (04:33→20:19)
[2023-08-19] MEDS: D5 1/2 NS 1,000 ML 1,000 ML IV SCH ×4 (05:37→22:02)
[2023-08-19 06:34] LABS: BASOPHILS # (AUTO) 0.1 X10^3/uL (0.0-0.1); BASOPHILS % (AUTO) 0.8 % (0.2-1.0); EOSINOPHILS % (AUTO) 0.1 % (0.9-2.9); HEMATOCRIT 39.8 % (36.0-47.0); HEMOGLOBIN 13.3 g/dL (12.0-16.0); LYMPHOCYTES # (AUTO) 2.2 X10^3/uL (1.3-2.9); LYMPHOCYTES % (AUTO) 23.6 % (21.0-51.0); MEAN CORPUSCULAR HEMOGLOBIN 33.6 pg (27.0-34.0); MEAN CORPUSCULAR HGB CONC 33.5 g/dL (33.0-35.0); MEAN CORPUSCULAR VOLUME 100.2 fL (80.0-100.0); MEAN PLATELET VOLUME 6.9 fL (7.4-11.0); MONOCYTES # (AUTO) 0.7 x10^3/uL (0.3-0.8); MONOCYTES % (AUTO) 7.4 % (0.0-13.0); NEUTROPHILS # (AUTO) 6.4 x10^3/uL (2.2-4.8); NEUTROPHILS % (AUTO) 68.1 % (42.0-75.0); PLATELET COUNT 302 X10^3/uL (150.0-450.0); RED BLOOD COUNT 3.97 X10^6/uL (3.5-5.4); RED CELL DISTRIBUTION WIDTH 13.2 % (11.6-16.5); WHITE BLOOD COUNT 9.4 X10^3/uL (3.6-10.0)
[2023-08-19 06:46] LABS: ALANINE AMINOTRANSFERASE 15 Units/L (12-78); ALBUMIN 3.3 g/dL (3.4-5.0); ALKALINE PHOSPHATASE 71 Units/L (46-116); ASPARTATE AMINO TRANSFERASE 13 Units/L (15-37); BLOOD UREA NITROGEN 7 mg/dL (7-18); CALCIUM 8.6 mg/dL (8.5-10.1); CARBON DIOXIDE 31.3 mmol/L (21-32); CHLORIDE 100 mmol/L (98-107); COR CA(FOR HYPOALB) 9.2 mg/dL (8.5-10.1); CREATININE 0.58 mg/dL (0.55-1.02); GLUCOSE 106 mg/dL (65-99); POTASSIUM 3.4 mmol/L (3.5-5.1); SODIUM 139 mmol/L (136-145); TOTAL PROTEIN 6.8 g/dL (6.4-8.2); eGFR NON BLACK RACES > 60 (>60)
--- NOTE | 2023-08-19 08:56 | DR.PROGNOT ---
HOSPITAL PROGRESS NOTE Progress Note for Day of: Progress Note Date: 08/19/23 Chief Complaint Chief Complaint: Mild to moderate pain around the incarcerated hernia. No further nausea or vomiting today, patient still n.p.o. Potassium was slightly low at 3.4. White count is normal as well as BUN/creatinine and liver function test. Past Medical Family Social History Allergies: Allergies No Known Drug Allergies Allergy (Unknown, Verified 08/11/23 15:45) Onset Date: 01/02/2021 Vital Signs Vital Signs: Vital Signs Temperature 98.6 F Pulse Rate [Brachial] 77 Respiratory Rate 20 Respiratory Rate 20 Respiratory Rate 18 Blood Pressure [Left Arm] 135/70 O2 Sat by Pulse Oximetry 96 Physical Exam Oriented: Normal Eyes: Normal Ear: Normal Respiratory: Normal Cardiovascular: Normal GI:Auscultation: Normal GI:Palpation: Other (Incarcerated incisional hernia below the umbilicus towards the left side measuring about 10 x 10 cm. Tender to pressure) Speech Pattern: Clear and Appropriate Laboratory and Diagnostics 08/19/23 06:17 08/19/23 06:17 Labs: Laboratory WBC 9.4 X10^3/uL (3.6-10.0) 08/19/23 06:17 RBC 3.97 X10^6/uL (3.5-5.4) 08/19/23 06:17 Hgb 13.3 g/dL (12.0-16.0) 08/19/23 06:17 Hct 39.8 % (36.0-47.0) 08/19/23 06:17 MCV 100.2 fL (80.0-100.0) H 08/19/23 06:17 MCH 33.6 pg (27.0-34.0) 08/19/23 06:17 MCHC 33.5 g/dL (33.0-35.0) 08/19/23 06:17 RDW 13.2 % (11.6-16.5) 08/19/23 06:17 Plt Count 302 X10^3/uL (150.0-450.0) 08/19/23 06:17 MPV 6.9 fL (7.4-11.0) L 08/19/23 06:17 Neut % (Auto) 68.1 % (42.0-75.0) 08/19/23 06:17 Lymph % (Auto) 23.6 % (21.0-51.0) 08/19/23 06:17 [place] % (Auto) 7.4 % (0.0-13.0) 08/19/23 06:17 Eos % (Auto) 0.1 % (0.9-2.9) L 08/19/23 06:17 Baso % (Auto) 0.8 % (0.2-1.0) 08/19/23 06:17 Neut # (Auto) 6.4 x10^3/uL (2.2-4.8) H 08/19/23 06:17 Lymph # (Auto) 2.2 X10^3/uL (1.3-2.9) 08/19/23 06:17 [place] # (Auto) 0.7 x10^3/uL (0.3-0.8) 08/19/23 06:17 Eos # (Auto) 0.0 x10^3/uL (0.0-0.2) 08/19/23 06:17 Baso # (Auto) 0.1 X10^3/uL (0.0-0.1) 08/19/23 06:17 Absolute Nucleated RBC 0.0 /100WBC 08/19/23 06:17 Sodium 139 mmol/L (136-145) 08/19/23 06:17 Corrected Sodium TNP 08/19/23 06:17 Potassium 3.4 mmol/L (3.5-5.1) L 08/19/23 06:17 Chloride 100 mmol/L (98-107) 08/19/23 06:17 Carbon Dioxide 31.3 mmol/L (21-32) 08/19/23 06:17 BUN 7 mg/dL (7-18) 08/19/23 06:17 Creatinine 0.58 mg/dL (0.55-1.02) 08/19/23 06:17 Est GFR (MDRD) Af Amer > 60 (>60) 08/19/23 06:17 Est GFR (MDRD) Non-Af > 60 (>60) 08/19/23 06:17 Glucose 106 mg/dL (65-99) H 08/19/23 06:17 Calcium 8.6 mg/dL (8.5-10.1) 08/19/23 06:17 Corrected Calcium 9.2 mg/dL (8.5-10.1) 08/19/23 06:17 Magnesium 2.0 mg/dL (2.0-2.9) 08/18/23 15:30 Total Bilirubin 0.50 mg/dL (0.2-1.0) 08/19/23 06:17 AST 13 Units/L (15-37) L 08/19/23 06:17 ALT 15 Units/L (12-78) 08/19/23 06:17 Alkaline Phosphatase 71 Units/L (46-116) 08/19/23 06:17 Total Protein 6.8 g/dL (6.4-8.2) 08/19/23 06:17 Albumin 3.3 g/dL (3.4-5.0) L 08/19/23 06:17 Globulin 3.5 g/dL (2.5-4.5) 08/19/23 06:17 Albumin/Globulin Ratio 0.9 Ratio (1.1-2.1) L 08/19/23 06:17 Lipase 48 Units/L (73-393) L 08/18/23 15:30 Specimen Type Clean catch urine 08/18/23 17:06 Urine Color Straw (YELLOW) 08/18/23 17:06 Urine Appearance Clear (CLEAR) 08/18/23 17:06 Urine pH 7.0 (5.0 - 8.0) 08/18/23 17:06 Ur Specific [place] 1.015 (1.000-1.030) 08/18/23 17:06 Urine Protein Negative (NEGATIVE) 08/18/23 17:06 Urine Glucose (UA) Negative (NEGATIVE) 08/18/23 17:06 Urine Ketones Negative (NEGATIVE) 08/18/23 17:06 Urine Blood Negative (NEGATIVE) 08/18/23 17:06 Urine Nitrite Negative (NEGATIVE) 08/18/23 17:06 Urine Bilirubin Negative (NEGATIVE) 08/18/23 17:06 Urine Urobilinogen Normal (NORMAL) 08/18/23 17:06 Ur Leukocyte Esterase Negative (NEGATIVE) 08/18/23 17:06 Assessment and Plan 1: Incarcerated ventral hernia lower abdomen. For further medical evaluation including echocardiogram before surgery. 2: Pretension, mild hypokalemia. 4: Moderate obesity. Problem Patient Problems: Patient Problems (Updated 08/18/23 @ 18:59 by Nghia Oh) Incarcerated hernia (Acute) K46.0
[2023-08-19] MEDS: PHENERGAN INJ 25 MG IM PRN (12:11)
--- NOTE | 2023-08-19 15:13 | DR.CONSULT ---
CONSULT Consultation for Day of: Date: 08/19/23 Chief Complaint Chief Complaint: abdominal pain Allergies Allergies Allergy/AdvReac Type Severity Reaction Status Date / Time No Known Drug Allergies Allergy Unknown Verified 08/11/23 15:45 History of Present Illness History of Present Illness: here for hernia surgery- last year had stress: no ischemia done for preop clearance- works as [employer]- no cv sx- on bp med (lisinopril) with usual good bp control- echo ordered for preop claerance: lvh ,aortic sclerosis/ mild to mod AI - 4.8 cm root- CXR this admission showed to rtuous Aorta- needs CTA in near future to better look at size of thoracic Aorta- denies hlp/dm/smoker- ekg: prwp Past Medical History Past Medical History: Hypertension Additional Medical History: Obesity Past Surgical History Surgical History: Cholecystectomy and PRESIDENT Surgery Family History Family Medical History: Hypertension Social History Does patient currently use any type of tobacco product: No Have you used tobacco products in the last 12 months: No Type of Tobacco Use: None Does any household member use tobacco: No Alcohol Use: None Drug Use: None Medications Home Medications: No Known Drug Allergies Allergy (Unknown, Verified 08/11/23 15:45) Physical Exam Vital Signs: Vital Signs Temperature 98.6 F Temperature 97.6 F Pulse Rate [Brachial] 77 Pulse Rate [Brachial] 92 Respiratory Rate 20 Respiratory Rate 18 Respiratory Rate 20 Respiratory Rate 20 Blood Pressure [Right Arm] 120/57 Blood Pressure [Right Arm] 117/66 O2 Sat by Pulse Oximetry 97 O2 Sat by Pulse Oximetry 97 alert ox3 nad no bruits clear lungs 2/6 sheila 2/4 AI murmur rrr mild edema b LABs:cbc/cmp ok CTA chest 2020: no mention of enlarged aorta Plan (1) Pre-op evaluation: Status: Acute Narrative Support Text: low acceptable CV risk (2) Hypertensive heart disease: Status: Acute Plan: resume bp med (3) Aortic insufficiency: Status: Acute Plan: resume bp med (4) Dilated aortic root: Status: Acute Plan: resume bp med and in near future: CTA thoracic aorta
[2023-08-19] MEDS ORDERED: PROTONIX INJ 40 MG VIAL IVP ONE (15:25)
[2023-08-19] MEDS ORDERED: ZESTRIL TAB 20 MG ONE (15:52)
[2023-08-19] MEDS: ZESTRIL TAB 20 MG PO SCH (15:57)
[2023-08-20] MEDS: PHENERGAN INJ 25 MG IM PRN (01:37)
[2023-08-20] MEDS ORDERED: HIBICLENS WASH EXT ONE (02:11)
[2023-08-20] MEDS: MORPHINE SULFATE INJ 4 MG IVP PRN (03:21)
[2023-08-20 05:26] LABS: BASOPHILS # (AUTO) 0.2 X10^3/uL (0.0-0.1); BASOPHILS % (AUTO) 1.5 % (0.2-1.0); EOSINOPHILS % (AUTO) 0.1 % (0.9-2.9); HEMATOCRIT 42.4 % (36.0-47.0); HEMOGLOBIN 14.4 g/dL (12.0-16.0); LYMPHOCYTES # (AUTO) 2.4 X10^3/uL (1.3-2.9); LYMPHOCYTES % (AUTO) 23.8 % (21.0-51.0); MEAN CORPUSCULAR HEMOGLOBIN 34.4 pg (27.0-34.0); MEAN CORPUSCULAR HGB CONC 33.9 g/dL (33.0-35.0); MEAN CORPUSCULAR VOLUME 101.5 fL (80.0-100.0); MEAN PLATELET VOLUME 7.4 fL (7.4-11.0); MONOCYTES # (AUTO) 0.8 x10^3/uL (0.3-0.8); MONOCYTES % (AUTO) 7.8 % (0.0-13.0); NEUTROPHILS # (AUTO) 6.6 x10^3/uL (2.2-4.8); NEUTROPHILS % (AUTO) 66.8 % (42.0-75.0); PLATELET COUNT 257 X10^3/uL (150.0-450.0); RED BLOOD COUNT 4.18 X10^6/uL (3.5-5.4); RED CELL DISTRIBUTION WIDTH 13.3 % (11.6-16.5); WHITE BLOOD COUNT 9.9 X10^3/uL (3.6-10.0)
[2023-08-20] MEDS: D5 1/2 NS 1,000 ML 1,000 ML IV SCH ×3 (05:32→20:30)
[2023-08-20 06:00] LABS: PLATELET MORPHOLOGY COMMENT NORMAL (NORMAL)
[2023-08-20 06:02] LABS: ALANINE AMINOTRANSFERASE 16 Units/L (12-78); ALBUMIN 3.4 g/dL (3.4-5.0); ALKALINE PHOSPHATASE 69 Units/L (46-116); ASPARTATE AMINO TRANSFERASE 18 Units/L (15-37); BLOOD UREA NITROGEN 7 mg/dL (7-18); CALCIUM 8.8 mg/dL (8.5-10.1); CARBON DIOXIDE 27.6 mmol/L (21-32); CHLORIDE 100 mmol/L (98-107); COR NA(FOR HYPERGLY) 138 mmol/L (136-145); CREATININE 0.59 mg/dL (0.55-1.02); GLUCOSE 115 mg/dL (65-99); POTASSIUM 3.5 mmol/L (3.5-5.1); SODIUM 138 mmol/L (136-145); eGFR NON BLACK RACES > 60 (>60)
--- NOTE | 2023-08-20 06:30 | DR.H&P ---
H&P History & Physical for Day of: H&P Date: 08/19/23 Chief Complaint Chief Complaint: Abdominal pain Nausea and vomiting Allergies Allergies Allergy/AdvReac Type Severity Reaction Status Date / Time No Known Drug Allergies Allergy Unknown Verified 08/11/23 15:45 History of Present Illness History of Present Illness: Patient is a 57-year-old female past medical history of DDD, Hypertension, SUSAN, OA, presenting with acute abdominal pain with nausea and vomiting. She reports that symptoms started yesterday and progressively worsened. Denies any chest pain, shortness of breath, change in bowel movements, fevers, or chills. Labs/imaging: WBC 9.4, hemoglobin 13.3, platelets 302, sodium 139, potassium 3.4, creatinine 0.58, glucose 106, UA negative, CT abdomen and pelvis was obtained that revealed: 1. Large (approximately 24 cm transverse by 7 cm AP by 9.9 cm CC) ventral anterior pelvic wall hernia containing loops of loops of descending colon and sigmoid colon, with thickened appearance of bowel loops immediately proximal to and within the hernia and steffany colonic stranding. Up to 5 cm fusiform aneurysmal dilatation of the ascending thoracic aorta. Patient was admitted for incarcerated hernia. We will keep her n.p.o. at this time, start IV fluids D5 half-normal saline at 125 mL/h. IV morphine as needed, Zofran as needed, Pepcid, Phenergan as needed, and IV Protonix 40 mg daily. General surgery has been consulted-Dr Escalera. Plan for repair of hernia tomorrow. Consulted cardiology-Dr Sanabria for CV risk clearance. Echo has been ordered. Patient is otherwise medically stable for surgery. Continue to closely monitor and follow-up labs in the morning. Past Medical History Past Medical History: Hypertension Additional Medical History: Obesity Past Surgical History Surgical History: Cholecystectomy and CROP GRAIN OR [employer] Surgery Family History Family Medical History: Hypertension Social History Does patient currently use any type of tobacco product: No Have you used tobacco products in the last 12 months: No Type of Tobacco Use: None Does any household member use tobacco: No Alcohol Use: None Drug Use: None Labs 08/20/23 04:50 08/20/23 04:50 Labs: Laboratory WBC 9.9 X10^3/uL (3.6-10.0) 08/20/23 04:50 RBC 4.18 X10^6/uL (3.5-5.4) 08/20/23 04:50 Hgb 14.4 g/dL (12.0-16.0) 08/20/23 04:50 Hct 42.4 % (36.0-47.0) 08/20/23 04:50 MCV 101.5 fL (80.0-100.0) H 08/20/23 04:50 MCH 34.4 pg (27.0-34.0) H 08/20/23 04:50 MCHC 33.9 g/dL (33.0-35.0) 08/20/23 04:50 RDW 13.3 % (11.6-16.5) 08/20/23 04:50 Plt Count 257 X10^3/uL (150.0-450.0) 08/20/23 04:50 Plt Count Comment Adequate (ADEQUATE) 08/20/23 04:50 MPV 7.4 fL (7.4-11.0) 08/20/23 04:50 Neut % (Auto) 66.8 % (42.0-75.0) 08/20/23 04:50 Lymph % (Auto) 23.8 % (21.0-51.0) 08/20/23 04:50 [place] % (Auto) 7.8 % (0.0-13.0) 08/20/23 04:50 Eos % (Auto) 0.1 % (0.9-2.9) L 08/20/23 04:50 Baso % (Auto) 1.5 % (0.2-1.0) H 08/20/23 04:50 Neut # (Auto) 6.6 x10^3/uL (2.2-4.8) H 08/20/23 04:50 Lymph # (Auto) 2.4 X10^3/uL (1.3-2.9) 08/20/23 04:50 [place] # (Auto) 0.8 x10^3/uL (0.3-0.8) 08/20/23 04:50 Eos # (Auto) 0.0 x10^3/uL (0.0-0.2) 08/20/23 04:50 Baso # (Auto) 0.2 X10^3/uL (0.0-0.1) H 08/20/23 04:50 Absolute Nucleated RBC 0.1 /100WBC 08/20/23 04:50 Plt Morphology Comment Normal (NORMAL) 08/20/23 04:50 RBC Morphology Normal (NORMAL) 08/20/23 04:50 Sodium 138 mmol/L (136-145) 08/20/23 04:50 Corrected Sodium 138 mmol/L (136-145) 08/20/23 04:50 Potassium 3.5 mmol/L (3.5-5.1) 08/20/23 04:50 Chloride 100 mmol/L (98-107) 08/20/23 04:50 Carbon Dioxide 27.6 mmol/L (21-32) 08/20/23 04:50 BUN 7 mg/dL (7-18) 08/20/23 04:50 Creatinine 0.59 mg/dL (0.55-1.02) 08/20/23 04:50 Est GFR (MDRD) Af Amer > 60 (>60) 08/20/23 04:50 Est GFR (MDRD) Non-Af > 60 (>60) 08/20/23 04:50 Glucose 115 mg/dL (65-99) H 08/20/23 04:50 Calcium 8.8 mg/dL (8.5-10.1) 08/20/23 04:50 Corrected Calcium TNP 08/20/23 04:50 Magnesium 2.0 mg/dL (2.0-2.9) 08/18/23 15:30 Total Bilirubin 0.50 mg/dL (0.2-1.0) 08/20/23 04:50 AST 18 Units/L (15-37) 08/20/23 04:50 ALT 16 Units/L (12-78) 08/20/23 04:50 Alkaline Phosphatase 69 Units/L (46-116) 08/20/23 04:50 Total Protein 7.0 g/dL (6.4-8.2) 08/20/23 04:50 Albumin 3.4 g/dL (3.4-5.0) 08/20/23 04:50 Globulin 3.6 g/dL (2.5-4.5) 08/20/23 04:50 Albumin/Globulin Ratio 0.9 Ratio (1.1-2.1) L 08/20/23 04:50 Lipase 48 Units/L (73-393) L 08/18/23 15:30 Specimen Type Clean catch urine 08/18/23 17:06 Urine Color Straw (YELLOW) 08/18/23 17:06 Urine Appearance Clear (CLEAR) 08/18/23 17:06 Urine pH 7.0 (5.0 - 8.0) 08/18/23 17:06 Ur Specific [place] 1.015 (1.000-1.030) 08/18/23 17:06 Urine Protein Negative (NEGATIVE) 08/18/23 17:06 Urine Glucose (UA) Negative (NEGATIVE) 08/18/23 17:06 Urine Ketones Negative (NEGATIVE) 08/18/23 17:06 Urine Blood Negative (NEGATIVE) 08/18/23 17:06 Urine Nitrite Negative (NEGATIVE) 08/18/23 17:06 Urine Bilirubin Negative (NEGATIVE) 08/18/23 17:06 Urine Urobilinogen Normal (NORMAL) 08/18/23 17:06 Ur Leukocyte Esterase Negative (NEGATIVE) 08/18/23 17:06 Review of Systems Constitutional: No Symptoms Reported Eyes: No Symptoms Reported ENT: No Symptoms Reported Respiratory: No Symptoms Reported Cardiovascular: No Symptoms Reported Gastrointestinal: Nausea, Vomiting and Abdominal Pain Genitourinary: No Symptoms Reported Musculoskeletal: No Symptoms Reported Skin: No Symptoms Reported Neurological: No Symptoms Reported Physical Exam Vital Signs: Vital Signs Temperature 97.3 F Temperature 98.3 F Pulse Rate [Brachial] 84 Pulse Rate [Brachial] 72 Respiratory Rate 18 Respiratory Rate 20 Respiratory Rate 22 Respiratory Rate 18 Blood Pressure [Right Arm] 164/94 Blood Pressure [Right Arm] 139/70 O2 Sat by Pulse Oximetry 98 O2 Sat by Pulse Oximetry 96 Oriented: Normal Eyes: Normal Ear: Normal Nose: Normal Throat: Normal Respiratory: Clear Throughout Cardiovascular: Normal : Normal Auscultation: Bowel Sounds: Normal Palpation: Normal Tenderness: Diffuse Skin: Normal Musculoskeletal: Normal Psychiatric: Normal Mood Description: Calm and Appropriate Affect: Normal Speech Pattern: Clear and Appropriate Assessment/Plan (1) Incarcerated hernia: Narrative Support Text: General surgery following. Plan for surgery tomorrow. IV fluids, n.p.o., IV morphine as needed, IV Zofran and Phenergan as needed. Status: Acute (2) Pre-op evaluation: Status: Acute (3) Hypertensive heart disease: Status: Acute (4) Aortic insufficiency: Status: Acute (5) Dilated aortic root: Status: Acute Review H&P Reviewed: Yes Patient was examined?: Yes
[2023-08-20] MEDS ORDERED: CONSULT PHARMACY - POTASSIUM & MAGNESIUM XX SCH (07:00)
[2023-08-20] MEDS ORDERED: ZESTRIL TAB 20 MG ONE (08:00)
[2023-08-20] MEDS: ZESTRIL TAB 20 MG PO SCH (08:06)
[2023-08-20] MEDS: PEPCID 20 MG VIAL 20 MG in NS 50 ML IV 50 ML IV SCH ×2 (08:08→20:28)
[2023-08-20] MEDS ORDERED: K-DUR TAB 20 MEQ PO SCH (09:00)
[2023-08-20] MEDS ORDERED: MARCAINE 0.5% ONE (09:05)
[2023-08-20] MEDS ORDERED: POLYMYXIN B SULFATE ONE (09:05)
--- NOTE | 2023-08-20 09:23 | EKG ---
Test Reason : PREOP Blood Pressure : */* mmHG Vent. Rate : 71 BPM Atrial Rate : 71 BPM P-R Int : 168 ms QRS Dur : 80 ms QT Int : 450 ms P-R-T Axes : -17 -4 49 degrees QTc Int : 489 ms Normal sinus rhythm Poor R-wave progression Left axis deviation Abnormal ECG No previous ECGs available Confirmed by Jose Sanabria MD ([id number]) on 08/20/2023 10:03:12 AM Referred By: Confirmed By: Jose Sanabria MD
[2023-08-20] MEDS ORDERED: ANCEF VIAL 1 GRAM ONE ×2 (09:48→10:30)
[2023-08-20] MEDS ORDERED: NS 100 ML IV 100 ML ONE ×2 (09:48→10:30)
[2023-08-20] MEDS ORDERED: LR 1,000 ML IV 1,000 ML IV ONE (09:48)
[2023-08-20] MEDS ORDERED: DECADRON INJ ONE (10:11)
[2023-08-20] MEDS ORDERED: PEPCID 20 MG VIAL ONE (10:11)
[2023-08-20] MEDS ORDERED: ZOFRAN INJ 4 MG VIAL ONE (10:11)
[2023-08-20] MEDS ORDERED: BRIDION ONE (10:12)
[2023-08-20] MEDS ORDERED: KETAMINE 50 MG/5 ML-NACL SYRNG ONE (10:12)
[2023-08-20] MEDS ORDERED: DIPRIVAN VIAL 20 ML ONE (10:12)
[2023-08-20] MEDS ORDERED: OFIRMEV IV 1000 MG VIAL 1,000 MG/100 ML VIAL IV ONE (10:12)
[2023-08-20] MEDS ORDERED: VERSED ONE (10:13)
[2023-08-20] MEDS ORDERED: FENTANYL VIAL INJ 100 mcg ONE ×2 (10:13→11:03)
[2023-08-20] MEDS ORDERED: BARHEMSYS INJ ONE (10:25)
[2023-08-20] MEDS ORDERED: ULTANE GAS IN ONE ×2 (10:25→10:29)
[2023-08-20] MEDS ORDERED: XYLOCAINE 2 % (PLAIN) ONE (10:29)
[2023-08-20] MEDS ORDERED: ZEMURON 100 MG VIAL ONE (10:31)
[2023-08-20] MEDS ORDERED: ROBINUL ONE (10:38)
[2023-08-20] MEDS ORDERED: AMIDATE INJ 40 MG VIAL ONE (10:41)
[2023-08-20] MEDS ORDERED: BREVIBLOC ONE (10:47)
[2023-08-20] MEDS ORDERED: LACRI-LUBE S.O.P. ONE (10:49)
[2023-08-20] MEDS ORDERED: DILAUDID INJ ONE ×2 (12:24→12:51)
[2023-08-20] MEDS ORDERED: DUONEB 0.5 MG/3 MG (3 mL) NEB ONE (12:40)
[2023-08-20] MEDS ORDERED: BARHEMSYS INJ IVP PRN (12:48)
[2023-08-20] MEDS ORDERED: BENADRYL INJ 50 MG VIAL IVP PRN (12:48)
[2023-08-20] MEDS: DILAUDID INJ IVP PRN ×5 (12:53→20:29)
[2023-08-20] MEDS ORDERED: NS IRRIGATION* 500 ML IR ONE (13:40)
[2023-08-20] MEDS: ZOSYN VIAL 3.375 GRAMS 3.375 G in NS 100 ML IV 100 ML IV SCH ×2 (14:28→21:28)
[2023-08-20] MEDS: ZOFRAN INJ 4 MG VIAL IVP PRN (20:28)
[2023-08-21] MEDS: DILAUDID INJ IVP PRN ×4 (00:28→20:57)
[2023-08-21] MEDS: ZOSYN VIAL 3.375 GRAMS 3.375 G in NS 100 ML IV 100 ML IV SCH ×3 (04:50→20:57)
[2023-08-21] MEDS: ZOFRAN INJ 4 MG VIAL IVP PRN ×3 (04:53→20:57)
[2023-08-21] MEDS: D5 1/2 NS 1,000 ML 1,000 ML IV SCH ×3 (05:01→22:02)
[2023-08-21 05:13] LABS: BASOPHILS # (AUTO) 0.1 X10^3/uL (0.0-0.1); BASOPHILS % (AUTO) 0.6 % (0.2-1.0); EOSINOPHILS % (AUTO) 0.1 % (0.9-2.9); HEMATOCRIT 43.5 % (36.0-47.0); HEMOGLOBIN 14.3 g/dL (12.0-16.0); LYMPHOCYTES # (AUTO) 3.5 X10^3/uL (1.3-2.9); LYMPHOCYTES % (AUTO) 26.6 % (21.0-51.0); MEAN CORPUSCULAR HEMOGLOBIN 33.8 pg (27.0-34.0); MEAN CORPUSCULAR HGB CONC 32.9 g/dL (33.0-35.0); MEAN CORPUSCULAR VOLUME 102.8 fL (80.0-100.0); MONOCYTES # (AUTO) 1.3 x10^3/uL (0.3-0.8); MONOCYTES % (AUTO) 9.6 % (0.0-13.0); NEUTROPHILS # (AUTO) 8.3 x10^3/uL (2.2-4.8); NEUTROPHILS % (AUTO) 63.1 % (42.0-75.0); PLATELET COUNT 250 X10^3/uL (150.0-450.0); RED BLOOD COUNT 4.23 X10^6/uL (3.5-5.4); RED CELL DISTRIBUTION WIDTH 13.1 % (11.6-16.5); WHITE BLOOD COUNT 13.1 X10^3/uL (3.6-10.0)
[2023-08-21 05:25] LABS: ALANINE AMINOTRANSFERASE 24 Units/L (12-78); ALBUMIN 3.2 g/dL (3.4-5.0); ALKALINE PHOSPHATASE 65 Units/L (46-116); ASPARTATE AMINO TRANSFERASE 50 Units/L (15-37); BLOOD UREA NITROGEN 8 mg/dL (7-18); CALCIUM 8.6 mg/dL (8.5-10.1); CARBON DIOXIDE 30.6 mmol/L (21-32); CHLORIDE 99 mmol/L (98-107); COR CA(FOR HYPOALB) 9.2 mg/dL (8.5-10.1); CREATININE 0.69 mg/dL (0.55-1.02); GLUCOSE 96 mg/dL (65-99); POTASSIUM 3.7 mmol/L (3.5-5.1); SODIUM 136 mmol/L (136-145); TOTAL PROTEIN 6.8 g/dL (6.4-8.2); eGFR NON BLACK RACES > 60 (>60)
[2023-08-21] MEDS ORDERED: CONSULT PHARMACY - POTASSIUM & MAGNESIUM XX SCH (06:00)
[2023-08-21] MEDS ORDERED: ZESTRIL TAB 20 MG ONE (07:27)
[2023-08-21 07:52] VITALS: BMI 36.0
[2023-08-21] MEDS: ZESTRIL TAB 20 MG PO SCH (08:20)
[2023-08-21] MEDS: PEPCID 20 MG VIAL 20 MG in NS 50 ML IV 50 ML IV SCH ×2 (08:21→20:56)
[2023-08-21] MEDS: LOVENOX INJ 40 MG SYR SC SCH (08:24)
--- NOTE | 2023-08-21 08:37 | DR.PROGNOT ---
HOSPITAL PROGRESS NOTE Progress Note for Day of: Progress Note Date: 08/21/23 Chief Complaint Chief Complaint: s/p laparotomy , repair of incarcerated incisional hernia day 1 . doing fairly well , passing flatus , no BM yet . slight elevated WBC , afebrile . Past Medical Family Social History Allergies: Allergies No Known Drug Allergies Allergy (Unknown, Verified 08/11/23 15:45) Onset Date: 01/02/2021 Vital Signs Vital Signs: Vital Signs Temperature 97.8 F Pulse Rate [Brachial] 68 Respiratory Rate 17 Respiratory Rate 23 Respiratory Rate 18 Respiratory Rate 18 Blood Pressure [Right Arm] 126/76 O2 Sat by Pulse Oximetry 93 Physical Exam Oriented: Normal Eyes: Normal Ear: Normal Nose: Normal Throat: Normal Respiratory: Normal Cardiovascular: Normal : Normal GI:Auscultation: Decreased GI:Palpation: Normal GI: Tenderness: Normal (incisional tenderness ..) and Diffuse Skin: Normal Musculoskeletal: Normal Psychiatric: Normal Mood Description: Calm Affect: Normal Speech Pattern: Clear and Appropriate Laboratory and Diagnostics 08/21/23 04:50 08/21/23 04:50 Labs: Laboratory WBC 13.1 X10^3/uL (3.6-10.0) H 08/21/23 04:50 RBC 4.23 X10^6/uL (3.5-5.4) 08/21/23 04:50 Hgb 14.3 g/dL (12.0-16.0) 08/21/23 04:50 Hct 43.5 % (36.0-47.0) 08/21/23 04:50 MCV 102.8 fL (80.0-100.0) H 08/21/23 04:50 MCH 33.8 pg (27.0-34.0) 08/21/23 04:50 MCHC 32.9 g/dL (33.0-35.0) L 08/21/23 04:50 RDW 13.1 % (11.6-16.5) 08/21/23 04:50 Plt Count 250 X10^3/uL (150.0-450.0) 08/21/23 04:50 Plt Count Comment Adequate (ADEQUATE) 08/20/23 04:50 MPV 7.0 fL (7.4-11.0) L 08/21/23 04:50 Neut % (Auto) 63.1 % (42.0-75.0) 08/21/23 04:50 Lymph % (Auto) 26.6 % (21.0-51.0) 08/21/23 04:50 [place] % (Auto) 9.6 % (0.0-13.0) 08/21/23 04:50 Eos % (Auto) 0.1 % (0.9-2.9) L 08/21/23 04:50 Baso % (Auto) 0.6 % (0.2-1.0) 08/21/23 04:50 Neut # (Auto) 8.3 x10^3/uL (2.2-4.8) H 08/21/23 04:50 Lymph # (Auto) 3.5 X10^3/uL (1.3-2.9) H 08/21/23 04:50 [place] # (Auto) 1.3 x10^3/uL (0.3-0.8) H 08/21/23 04:50 Eos # (Auto) 0.0 x10^3/uL (0.0-0.2) 08/21/23 04:50 Baso # (Auto) 0.1 X10^3/uL (0.0-0.1) 08/21/23 04:50 Absolute Nucleated RBC 0.0 /100WBC 08/21/23 04:50 Plt Morphology Comment Normal (NORMAL) 08/20/23 04:50 RBC Morphology Normal (NORMAL) 08/20/23 04:50 Sodium 136 mmol/L (136-145) 08/21/23 04:50 Corrected Sodium TNP 08/21/23 04:50 Potassium 3.7 mmol/L (3.5-5.1) 08/21/23 04:50 Chloride 99 mmol/L (98-107) 08/21/23 04:50 Carbon Dioxide 30.6 mmol/L (21-32) 08/21/23 04:50 BUN 8 mg/dL (7-18) 08/21/23 04:50 Creatinine 0.69 mg/dL (0.55-1.02) 08/21/23 04:50 Est GFR (MDRD) Af Amer > 60 (>60) 08/21/23 04:50 Est GFR (MDRD) Non-Af > 60 (>60) 08/21/23 04:50 Glucose 96 mg/dL (65-99) 08/21/23 04:50 Calcium 8.6 mg/dL (8.5-10.1) 08/21/23 04:50 Corrected Calcium 9.2 mg/dL (8.5-10.1) 08/21/23 04:50 Magnesium 2.0 mg/dL (2.0-2.9) 08/21/23 04:50 Total Bilirubin 0.60 mg/dL (0.2-1.0) 08/21/23 04:50 AST 50 Units/L (15-37) H 08/21/23 04:50 ALT 24 Units/L (12-78) 08/21/23 04:50 Alkaline Phosphatase 65 Units/L (46-116) 08/21/23 04:50 Total Protein 6.8 g/dL (6.4-8.2) 08/21/23 04:50 Albumin 3.2 g/dL (3.4-5.0) L 08/21/23 04:50 Globulin 3.6 g/dL (2.5-4.5) 08/21/23 04:50 Albumin/Globulin Ratio 0.9 Ratio (1.1-2.1) L 08/21/23 04:50 Lipase 48 Units/L (73-393) L 08/18/23 15:30 Specimen Type Clean catch urine 08/18/23 17:06 Urine Color Straw (YELLOW) 08/18/23 17:06 Urine Appearance Clear (CLEAR) 08/18/23 17:06 Urine pH 7.0 (5.0 - 8.0) 08/18/23 17:06 Ur Specific [place] 1.015 (1.000-1.030) 08/18/23 17:06 Urine Protein Negative (NEGATIVE) 08/18/23 17:06 Urine Glucose (UA) Negative (NEGATIVE) 08/18/23 17:06 Urine Ketones Negative (NEGATIVE) 08/18/23 17:06 Urine Blood Negative (NEGATIVE) 08/18/23 17:06 Urine Nitrite Negative (NEGATIVE) 08/18/23 17:06 Urine Bilirubin Negative (NEGATIVE) 08/18/23 17:06 Urine Urobilinogen Normal (NORMAL) 08/18/23 17:06 Ur Leukocyte Esterase Negative (NEGATIVE) 08/18/23 17:06 Assessment and Plan 1: s/p laparotomy , omentectomy , repair of Incarcerated ventral hernia lower abdomen.day 1. OOB, DVT prophylaxis , advance diet . 2: Pretension, mild hypokalemia. 4: Moderate obesity. Problem Patient Problems: Patient Problems Incarcerated hernia (Acute) K46.0
[2023-08-21] MEDS ORDERED: K-DUR TAB 20 MEQ PO SCH (09:00)
[2023-08-22 05:10] LABS: BASOPHILS % (AUTO) 0.2 % (0.2-1.0); EOSINOPHILS # (AUTO) 0.1 x10^3/uL (0.0-0.2); EOSINOPHILS % (AUTO) 0.6 % (0.9-2.9); HEMATOCRIT 39.6 % (36.0-47.0); HEMOGLOBIN 13.2 g/dL (12.0-16.0); LYMPHOCYTES # (AUTO) 1.9 X10^3/uL (1.3-2.9); MEAN CORPUSCULAR HEMOGLOBIN 34.1 pg (27.0-34.0); MEAN CORPUSCULAR HGB CONC 33.2 g/dL (33.0-35.0); MEAN CORPUSCULAR VOLUME 102.6 fL (80.0-100.0); MEAN PLATELET VOLUME 7.4 fL (7.4-11.0); MONOCYTES # (AUTO) 0.9 x10^3/uL (0.3-0.8); MONOCYTES % (AUTO) 9.6 % (0.0-13.0); NEUTROPHILS # (AUTO) 6.7 x10^3/uL (2.2-4.8); NEUTROPHILS % (AUTO) 69.6 % (42.0-75.0); PLATELET COUNT 252 X10^3/uL (150.0-450.0); RED BLOOD COUNT 3.86 X10^6/uL (3.5-5.4); RED CELL DISTRIBUTION WIDTH 13.2 % (11.6-16.5); WHITE BLOOD COUNT 9.6 X10^3/uL (3.6-10.0)
[2023-08-22] MEDS: ZOFRAN INJ 4 MG VIAL IVP PRN ×3 (05:14→19:00)
[2023-08-22] MEDS: ZOSYN VIAL 3.375 GRAMS 3.375 G in NS 100 ML IV 100 ML IV SCH ×3 (05:14→20:33)
[2023-08-22] MEDS: DILAUDID INJ IVP PRN ×4 (05:14→20:34)
[2023-08-22 05:18] LABS: ALANINE AMINOTRANSFERASE 40 Units/L (12-78); ALKALINE PHOSPHATASE 64 Units/L (46-116); BLOOD UREA NITROGEN 11 mg/dL (7-18); CALCIUM 8.6 mg/dL (8.5-10.1); CARBON DIOXIDE 32.9 mmol/L (21-32); CHLORIDE 100 mmol/L (98-107); COR CA(FOR HYPOALB) 9.4 mg/dL (8.5-10.1); CREATININE 0.99 mg/dL (0.55-1.02); GLUCOSE 91 mg/dL (65-99); SODIUM 138 mmol/L (136-145); TOTAL PROTEIN 6.5 g/dL (6.4-8.2); eGFR NON BLACK RACES > 60 (>60)
[2023-08-22 05:20] LABS: ASPARTATE AMINO TRANSFERASE 78 Units/L (15-37); POTASSIUM 4.2 mmol/L (3.5-5.1)
[2023-08-22] MEDS ORDERED: ZESTRIL TAB 20 MG ONE (07:50)
[2023-08-22] MEDS: PEPCID 20 MG VIAL 20 MG in NS 50 ML IV 50 ML IV SCH ×3 (08:39→20:34)
[2023-08-22] MEDS: ZESTRIL TAB 20 MG PO SCH (08:39)
[2023-08-22] MEDS: LOVENOX INJ 40 MG SYR SC SCH (08:39)
--- NOTE | 2023-08-22 09:14 | DR.PROGNOT ---
HOSPITAL PROGRESS NOTE Progress Note for Day of: Progress Note Date: 08/22/23 Chief Complaint Chief Complaint: s/p laparotomy , repair of incarcerated incisional hernia day 2. still having incisional pain . doing fairly well , passing flatus , no BM yet . normal WBC. afebrile Past Medical Family Social History Allergies: Allergies No Known Drug Allergies Allergy (Unknown, Verified 08/11/23 15:45) Onset Date: 01/02/2021 Vital Signs Vital Signs: Vital Signs Temperature 98.5 F Temperature 97.8 F Pulse Rate [Brachial] 80 Pulse Rate [Brachial] 78 Respiratory Rate 20 Respiratory Rate 17 Respiratory Rate 20 Respiratory Rate 20 Blood Pressure [Right Arm] 130/68 Blood Pressure [Right Arm] 133/62 O2 Sat by Pulse Oximetry 94 O2 Sat by Pulse Oximetry 94 Physical Exam Oriented: Normal Eyes: Normal Ear: Normal Nose: Normal Throat: Normal Respiratory: Normal Cardiovascular: Normal : Normal GI:Auscultation: Decreased GI:Palpation: Normal GI: Tenderness: Normal (incisional tenderness ..) and Diffuse Skin: Normal Musculoskeletal: Normal Psychiatric: Normal Mood Description: Calm Affect: Normal Speech Pattern: Clear and Appropriate Laboratory and Diagnostics 08/22/23 04:03 08/22/23 04:03 Labs: Laboratory WBC 9.6 X10^3/uL (3.6-10.0) 08/22/23 04:03 RBC 3.86 X10^6/uL (3.5-5.4) 08/22/23 04:03 Hgb 13.2 g/dL (12.0-16.0) 08/22/23 04:03 Hct 39.6 % (36.0-47.0) 08/22/23 04:03 MCV 102.6 fL (80.0-100.0) H 08/22/23 04:03 MCH 34.1 pg (27.0-34.0) H 08/22/23 04:03 MCHC 33.2 g/dL (33.0-35.0) 08/22/23 04:03 RDW 13.2 % (11.6-16.5) 08/22/23 04:03 Plt Count 252 X10^3/uL (150.0-450.0) 08/22/23 04:03 Plt Count Comment Adequate (ADEQUATE) 08/20/23 04:50 MPV 7.4 fL (7.4-11.0) 08/22/23 04:03 Neut % (Auto) 69.6 % (42.0-75.0) 08/22/23 04:03 Lymph % (Auto) 20.0 % (21.0-51.0) L 08/22/23 04:03 [place] % (Auto) 9.6 % (0.0-13.0) 08/22/23 04:03 Eos % (Auto) 0.6 % (0.9-2.9) L 08/22/23 04:03 Baso % (Auto) 0.2 % (0.2-1.0) 08/22/23 04:03 Neut # (Auto) 6.7 x10^3/uL (2.2-4.8) H 08/22/23 04:03 Lymph # (Auto) 1.9 X10^3/uL (1.3-2.9) 08/22/23 04:03 [place] # (Auto) 0.9 x10^3/uL (0.3-0.8) H 08/22/23 04:03 Eos # (Auto) 0.1 x10^3/uL (0.0-0.2) 08/22/23 04:03 Baso # (Auto) 0.0 X10^3/uL (0.0-0.1) 08/22/23 04:03 Absolute Nucleated RBC 0.0 /100WBC 08/22/23 04:03 Plt Morphology Comment Normal (NORMAL) 08/20/23 04:50 RBC Morphology Normal (NORMAL) 08/20/23 04:50 Sodium 138 mmol/L (136-145) 08/22/23 04:03 Corrected Sodium TNP 08/22/23 04:03 Potassium 4.2 mmol/L (3.5-5.1) 08/22/23 04:03 Chloride 100 mmol/L (98-107) 08/22/23 04:03 Carbon Dioxide 32.9 mmol/L (21-32) H 08/22/23 04:03 BUN 11 mg/dL (7-18) 08/22/23 04:03 Creatinine 0.99 mg/dL (0.55-1.02) 08/22/23 04:03 Est GFR (MDRD) Af Amer > 60 (>60) 08/22/23 04:03 Est GFR (MDRD) Non-Af > 60 (>60) 08/22/23 04:03 Glucose 91 mg/dL (65-99) 08/22/23 04:03 Calcium 8.6 mg/dL (8.5-10.1) 08/22/23 04:03 Corrected Calcium 9.4 mg/dL (8.5-10.1) 08/22/23 04:03 Magnesium 2.0 mg/dL (2.0-2.9) 08/21/23 04:50 Total Bilirubin 0.80 mg/dL (0.2-1.0) 08/22/23 04:03 AST 78 Units/L (15-37) H 08/22/23 04:03 ALT 40 Units/L (12-78) 08/22/23 04:03 Alkaline Phosphatase 64 Units/L (46-116) 08/22/23 04:03 Total Protein 6.5 g/dL (6.4-8.2) 08/22/23 04:03 Albumin 3.0 g/dL (3.4-5.0) L 08/22/23 04:03 Globulin 3.5 g/dL (2.5-4.5) 08/22/23 04:03 Albumin/Globulin Ratio 0.9 Ratio (1.1-2.1) L 08/22/23 04:03 Lipase 48 Units/L (73-393) L 08/18/23 15:30 Vitamin B12 1260 pg/mL (193-986) H 08/21/23 10:10 Folate 19.5 ng/mL (>8.6) 08/21/23 10:10 Specimen Type Clean catch urine 08/18/23 17:06 Urine Color Straw (YELLOW) 08/18/23 17:06 Urine Appearance Clear (CLEAR) 08/18/23 17:06 Urine pH 7.0 (5.0 - 8.0) 08/18/23 17:06 Ur Specific [place] 1.015 (1.000-1.030) 08/18/23 17:06 Urine Protein Negative (NEGATIVE) 08/18/23 17:06 Urine Glucose (UA) Negative (NEGATIVE) 08/18/23 17:06 Urine Ketones Negative (NEGATIVE) 08/18/23 17:06 Urine Blood Negative (NEGATIVE) 08/18/23 17:06 Urine Nitrite Negative (NEGATIVE) 08/18/23 17:06 Urine Bilirubin Negative (NEGATIVE) 08/18/23 17:06 Urine Urobilinogen Normal (NORMAL) 08/18/23 17:06 Ur Leukocyte Esterase Negative (NEGATIVE) 08/18/23 17:06 Assessment and Plan 1: s/p laparotomy , omentectomy , repair of Incarcerated ventral hernia lower abdomen.day 2. OOB, DVT prophylaxis , advance diet . to D/C in am 2: Pretension, mild hypokalemia. 4: Moderate obesity. Problem Patient Problems: Patient Problems Incarcerated hernia (Acute) K46.0
[2023-08-22] MEDS: D5 1/2 NS 1,000 ML 1,000 ML IV SCH (09:31)
[2023-08-22] MEDS: NS 1,000 ML IV 1,000 ML IV SCH ×2 (10:32→18:44)
[2023-08-23] MEDS: DILAUDID INJ IVP PRN ×3 (02:32→13:22)
[2023-08-23] MEDS: NS 1,000 ML IV 1,000 ML IV SCH ×2 (02:32→11:10)
[2023-08-23 03:56] VITALS: RESP 18
[2023-08-23] MEDS: ZOSYN VIAL 3.375 GRAMS 3.375 G in NS 100 ML IV 100 ML IV SCH ×2 (04:40→14:45)
[2023-08-23 05:25] LABS: BASOPHILS % (AUTO) 0.3 % (0.2-1.0); EOSINOPHILS # (AUTO) 0.1 x10^3/uL (0.0-0.2); HEMATOCRIT 34.1 % (36.0-47.0); HEMOGLOBIN 11.4 g/dL (12.0-16.0); LYMPHOCYTES # (AUTO) 1.7 X10^3/uL (1.3-2.9); LYMPHOCYTES % (AUTO) 27.1 % (21.0-51.0); MEAN CORPUSCULAR HEMOGLOBIN 34.3 pg (27.0-34.0); MEAN CORPUSCULAR HGB CONC 33.5 g/dL (33.0-35.0); MEAN CORPUSCULAR VOLUME 102.4 fL (80.0-100.0); MEAN PLATELET VOLUME 7.3 fL (7.4-11.0); MONOCYTES # (AUTO) 0.5 x10^3/uL (0.3-0.8); MONOCYTES % (AUTO) 8.6 % (0.0-13.0); PLATELET COUNT 209 X10^3/uL (150.0-450.0); RED BLOOD COUNT 3.33 X10^6/uL (3.5-5.4); RED CELL DISTRIBUTION WIDTH 13.1 % (11.6-16.5); WHITE BLOOD COUNT 6.3 X10^3/uL (3.6-10.0)
[2023-08-23 05:48] LABS: ALANINE AMINOTRANSFERASE 38 Units/L (12-78); ALBUMIN 2.5 g/dL (3.4-5.0); ALKALINE PHOSPHATASE 69 Units/L (46-116); ASPARTATE AMINO TRANSFERASE 51 Units/L (15-37); BLOOD UREA NITROGEN 10 mg/dL (7-18); CALCIUM 8.2 mg/dL (8.5-10.1); CARBON DIOXIDE 33.1 mmol/L (21-32); CHLORIDE 104 mmol/L (98-107); COR CA(FOR HYPOALB) 9.4 mg/dL (8.5-10.1); CREATININE 0.66 mg/dL (0.55-1.02); GLUCOSE 88 mg/dL (65-99); POTASSIUM 3.6 mmol/L (3.5-5.1); SODIUM 139 mmol/L (136-145); TOTAL PROTEIN 5.7 g/dL (6.4-8.2); eGFR NON BLACK RACES > 60 (>60)
[2023-08-23] MEDS: ZOFRAN INJ 4 MG VIAL IVP PRN ×2 (06:11→13:22)
[2023-08-23] MEDS ORDERED: CONSULT PHARMACY - POTASSIUM & MAGNESIUM XX SCH (07:00)
[2023-08-23] MEDS ORDERED: ZESTRIL TAB 20 MG ONE (08:01)
[2023-08-23] MEDS: ZESTRIL TAB 20 MG PO SCH (08:06)
[2023-08-23] MEDS: PEPCID 20 MG VIAL 20 MG in NS 50 ML IV 50 ML IV SCH (08:07)
[2023-08-23] MEDS: LOVENOX INJ 40 MG SYR SC SCH (08:17)
[2023-08-23] MEDS ORDERED: K-DUR TAB 20 MEQ PO SCH (09:00)
--- NOTE | 2023-08-23 09:18 | PCM.PROG ---
Progress Note Progress Note for Day of Date of Exam: 08/20/23 Subjective Subjective: Patient is a 57-year-old female past medical history of DDD, Hypertension, SUSAN, OA, admitted for incarcerated ventral hernia. This morning she reports no change in symptoms. No acute events overnight. Labs/imaging: WBC 9.9, hemoglobin 14.4, platelets 257, sodium 138, potassium 3.5, creatinine 0.59, glucose 115. We will keep her n.p.o. at this time, continue IV fluids D5 half- normal saline at 125 mL/h. IV morphine as needed, Zofran as needed, Pepcid, Phenergan as needed, and IV Protonix 40 mg daily. General surgery has been consulted-Dr Escalera. Plan for repair of hernia today. Consulted cardiology-Dr Sanabria for CV risk clearance which she has been medically cleared. Continue to closely monitor and follow-up labs in the morning. Past Medical Family Social History Allergies: Allergies No Known Drug Allergies Allergy (Unknown, Verified 08/11/23 15:45) Onset Date: 01/02/2021 Review of Systems ROS: No change since H&P Vital Signs and I&O's Vital Signs: Vital Signs Temperature 98.9 F Temperature 98.5 F Pulse Rate [Brachial] 72 Pulse Rate [Brachial] 66 Respiratory Rate 18 Respiratory Rate 20 Respiratory Rate 18 Respiratory Rate 18 Respiratory Rate 20 Blood Pressure [Right Arm] 138/69 Blood Pressure [Right Arm] 100/58 O2 Sat by Pulse Oximetry 96 O2 Sat by Pulse Oximetry 93 Intake and Output: Intake & Output 08/20/23 08/21/23 08/22/23 08/23/23 23:59 23:59 23:59 23:59 Intake Total 3094 / 3094 3010 / 3010 3778 / 3778 428 / 428 Output Total 1390 / 1390 530 / 530 60 / 60 10 Balance 1704 / 1704 2480 / 2480 3718 / 3718 418 / 418 Physical Exam Oriented: Normal Eyes: Normal Ear: Normal Nose: Normal Throat: Normal Respiratory: Normal Cardiovascular: Normal : Normal Auscultation: Bowel Sounds: Decreased Tenderness: Normal and Diffuse Skin: Normal Musculoskeletal: Normal Psychiatric: Normal Mood Description: Calm Affect: Normal Speech Pattern: Clear and Appropriate Laboratory and Diagnostics 08/23/23 04:00 08/23/23 04:00 Labs: Laboratory WBC 6.3 X10^3/uL (3.6-10.0) 08/23/23 04:00 RBC 3.33 X10^6/uL (3.5-5.4) L 08/23/23 04:00 Hgb 11.4 g/dL (12.0-16.0) L 08/23/23 04:00 Hct 34.1 % (36.0-47.0) L 08/23/23 04:00 MCV 102.4 fL (80.0-100.0) H 08/23/23 04:00 MCH 34.3 pg (27.0-34.0) H 08/23/23 04:00 MCHC 33.5 g/dL (33.0-35.0) 08/23/23 04:00 RDW 13.1 % (11.6-16.5) 08/23/23 04:00 Plt Count 209 X10^3/uL (150.0-450.0) 08/23/23 04:00 Plt Count Comment Adequate (ADEQUATE) 08/20/23 04:50 MPV 7.3 fL (7.4-11.0) L 08/23/23 04:00 Neut % (Auto) 63.0 % (42.0-75.0) 08/23/23 04:00 Lymph % (Auto) 27.1 % (21.0-51.0) 08/23/23 04:00 [place] % (Auto) 8.6 % (0.0-13.0) 08/23/23 04:00 Eos % (Auto) 1.0 % (0.9-2.9) 08/23/23 04:00 Baso % (Auto) 0.3 % (0.2-1.0) 08/23/23 04:00 Neut # (Auto) 4.0 x10^3/uL (2.2-4.8) 08/23/23 04:00 Lymph # (Auto) 1.7 X10^3/uL (1.3-2.9) 08/23/23 04:00 [place] # (Auto) 0.5 x10^3/uL (0.3-0.8) 08/23/23 04:00 Eos # (Auto) 0.1 x10^3/uL (0.0-0.2) 08/23/23 04:00 Baso # (Auto) 0.0 X10^3/uL (0.0-0.1) 08/23/23 04:00 Absolute Nucleated RBC 0.0 /100WBC 08/23/23 04:00 Plt Morphology Comment Normal (NORMAL) 08/20/23 04:50 RBC Morphology Normal (NORMAL) 08/20/23 04:50 Sodium 139 mmol/L (136-145) 08/23/23 04:00 Corrected Sodium TNP 08/23/23 04:00 Potassium 3.6 mmol/L (3.5-5.1) 08/23/23 04:00 Chloride 104 mmol/L (98-107) 08/23/23 04:00 Carbon Dioxide 33.1 mmol/L (21-32) H 08/23/23 04:00 BUN 10 mg/dL (7-18) 08/23/23 04:00 Creatinine 0.66 mg/dL (0.55-1.02) 08/23/23 04:00 Est GFR (MDRD) Af Amer > 60 (>60) 08/23/23 04:00 Est GFR (MDRD) Non-Af > 60 (>60) 08/23/23 04:00 Glucose 88 mg/dL (65-99) 08/23/23 04:00 Calcium 8.2 mg/dL (8.5-10.1) L 08/23/23 04:00 Corrected Calcium 9.4 mg/dL (8.5-10.1) 08/23/23 04:00 Magnesium 1.9 mg/dL (2.0-2.9) L 08/23/23 04:00 Total Bilirubin 0.50 mg/dL (0.2-1.0) 08/23/23 04:00 AST 51 Units/L (15-37) H 08/23/23 04:00 ALT 38 Units/L (12-78) 08/23/23 04:00 Alkaline Phosphatase 69 Units/L (46-116) 08/23/23 04:00 Total Protein 5.7 g/dL (6.4-8.2) L 08/23/23 04:00 Albumin 2.5 g/dL (3.4-5.0) L 08/23/23 04:00 Globulin 3.2 g/dL (2.5-4.5) 08/23/23 04:00 Albumin/Globulin Ratio 0.8 Ratio (1.1-2.1) L 08/23/23 04:00 Lipase 48 Units/L (73-393) L 08/18/23 15:30 Vitamin B12 1260 pg/mL (193-986) H 08/21/23 10:10 Folate 19.5 ng/mL (>8.6) 08/21/23 10:10 Specimen Type Clean catch urine 08/18/23 17:06 Urine Color Straw (YELLOW) 08/18/23 17:06 Urine Appearance Clear (CLEAR) 08/18/23 17:06 Urine pH 7.0 (5.0 - 8.0) 08/18/23 17:06 Ur Specific [place] 1.015 (1.000-1.030) 08/18/23 17:06 Urine Protein Negative (NEGATIVE) 08/18/23 17:06 Urine Glucose (UA) Negative (NEGATIVE) 08/18/23 17:06 Urine Ketones Negative (NEGATIVE) 08/18/23 17:06 Urine Blood Negative (NEGATIVE) 08/18/23 17:06 Urine Nitrite Negative (NEGATIVE) 08/18/23 17:06 Urine Bilirubin Negative (NEGATIVE) 08/18/23 17:06 Urine Urobilinogen Normal (NORMAL) 08/18/23 17:06 Ur Leukocyte Esterase Negative (NEGATIVE) 08/18/23 17:06 Plan (1) Incarcerated hernia: Status: Acute (2) Pre-op evaluation: Status: Acute (3) Hypertensive heart disease: Status: Acute (4) Aortic insufficiency: Status: Acute (5) Dilated aortic root: Status: Acute
[2023-08-23 13:55] VITALS: BP 111/56; PULSE 66; TEMP 98; O2SAT 95
--- NOTE | 2023-08-23 20:41 | W.DIS.FURT ---
Summary of Discharge Discharge Summary of Date Date of Exam: 08/23/23 Admission Date Date of Admission: 08/18/23 Admission Diagnosis Patient Problems (Updated 08/19/23 @ 15:12 by CHERRY MARAVILLA) Incarcerated hernia (Acute) K46.0 Hospital Course: Patient is a 57-year-old female past medical history of DDD, Hypertension, SUSAN, OA, admitted for incarcerated ventral hernia. General surgery-Dr Escalera was consulted. Pt is status post surgical repair of ventral hernia and is doing well. J/P drain removed and incisional wound healing well. Pt discharged in stable condition. Instructed to follow up with general surgery and pcp in 1 week. Vital Signs: Vital Signs (72 hours) 08/20/23 20:40 08/20/23 20:59 08/21/23 00:28 Temperature Pulse Rate 71 Pulse Rate [Brachial] Respiratory Rate 21 21 Blood Pressure [Right Arm] O2 Sat by Pulse Oximetry 100 Oxygen Delivery Method 08/21/23 00:00 08/21/23 00:58 08/21/23 04:54 Temperature 98.3 F Pulse Rate Pulse Rate [Brachial] 78 Respiratory Rate 20 18 23 Blood Pressure [Right Arm] 133/63 O2 Sat by Pulse Oximetry 94 L Oxygen Delivery Method Room Air 08/21/23 04:00 08/21/23 05:24 08/21/23 07:00 Temperature 97.8 F Pulse Rate Pulse Rate [Brachial] 68 Respiratory Rate 18 17 Blood Pressure [Right Arm] 126/76 O2 Sat by Pulse Oximetry 93 L Oxygen Delivery Method Room Air Room Air 08/21/23 08:00 08/21/23 11:43 08/21/23 12:00 Temperature 98.0 F 98.6 F Pulse Rate Pulse Rate [Brachial] 79 78 Respiratory Rate 18 20 17 Blood Pressure [Right Arm] 130/79 120/73 O2 Sat by Pulse Oximetry 98 96 Oxygen Delivery Method Room Air Room Air 08/21/23 12:30 08/21/23 16:00 08/21/23 19:00 Temperature 98.7 F Pulse Rate Pulse Rate [Brachial] 78 Respiratory Rate 17 20 Blood Pressure [Right Arm] 123/63 O2 Sat by Pulse Oximetry 97 Oxygen Delivery Method Room Air Room Air 08/21/23 20:00 08/21/23 20:57 08/21/23 21:27 Temperature 98.4 F Pulse Rate Pulse Rate [Brachial] 91 H Respiratory Rate 20 20 21 Blood Pressure [Right Arm] 120/66 O2 Sat by Pulse Oximetry 95 Oxygen Delivery Method Room Air 08/22/23 00:00 08/21/23 21:00 08/22/23 05:14 Temperature 97.8 F Pulse Rate 102 H Pulse Rate [Brachial] 88 Respiratory Rate 20 20 Blood Pressure [Right Arm] 133/59 O2 Sat by Pulse Oximetry 95 95 Oxygen Delivery Method Room Air 08/22/23 04:00 08/22/23 05:44 08/22/23 08:00 Temperature 97.8 F 98.5 F Pulse Rate Pulse Rate [Brachial] 78 80 Respiratory Rate 20 17 20 Blood Pressure [Right Arm] 133/62 130/68 O2 Sat by Pulse Oximetry 94 L 94 L Oxygen Delivery Method Room Air Room Air 08/22/23 07:00 08/22/23 09:56 08/22/23 10:26 Temperature Pulse Rate Pulse Rate [Brachial] Respiratory Rate 17 18 Blood Pressure [Right Arm] O2 Sat by Pulse Oximetry Oxygen Delivery Method Room Air 08/22/23 12:00 08/22/23 13:57 08/22/23 16:00 Temperature 98.6 F 97.7 F Pulse Rate Pulse Rate [Brachial] 70 88 Respiratory Rate 20 20 18 Blood Pressure [Right Arm] 121/57 133/63 O2 Sat by Pulse Oximetry 94 L 97 Oxygen Delivery Method Room Air Room Air 08/22/23 14:27 08/22/23 19:00 08/22/23 19:40 Temperature 98.9 F Pulse Rate Pulse Rate [Brachial] 71 Respiratory Rate 20 20 Blood Pressure [Right Arm] 124/66 O2 Sat by Pulse Oximetry 95 Oxygen Delivery Method Room Air Room Air 08/22/23 20:34 08/22/23 21:04 08/23/23 00:00 Temperature 98.4 F Pulse Rate Pulse Rate [Brachial] 62 Respiratory Rate 20 18 18 Blood Pressure [Right Arm] 99/53 O2 Sat by Pulse Oximetry 95 Oxygen Delivery Method Room Air 08/23/23 02:32 08/23/23 03:02 08/23/23 04:00 Temperature 98.5 F Pulse Rate Pulse Rate [Brachial] 66 Respiratory Rate 20 18 18 Blood Pressure [Right Arm] 100/58 O2 Sat by Pulse Oximetry 93 L Oxygen Delivery Method Room Air 08/23/23 08:16 08/23/23 07:00 08/23/23 08:00 Temperature 98.9 F Pulse Rate Pulse Rate [Brachial] 72 Respiratory Rate 18 20 Blood Pressure [Right Arm] 138/69 O2 Sat by Pulse Oximetry 96 Oxygen Delivery Method Room Air Room Air 08/23/23 08:46 08/23/23 13:22 08/23/23 12:00 Temperature 98 F Pulse Rate Pulse Rate [Brachial] 66 Respiratory Rate 18 18 20 Blood Pressure [Right Arm] 111/56 O2 Sat by Pulse Oximetry 95 Oxygen Delivery Method Room Air 08/23/23 13:52 Temperature Pulse Rate Pulse Rate [Brachial] Respiratory Rate 18 Blood Pressure [Right Arm] O2 Sat by Pulse Oximetry Oxygen Delivery Method Labs: Laboratory Last Values WBC 6.3 X10^3/uL (3.6-10.0) 08/23/23 04:00 RBC 3.33 X10^6/uL (3.5-5.4) L 08/23/23 04:00 Hgb 11.4 g/dL (12.0-16.0) L 08/23/23 04:00 Hct 34.1 % (36.0-47.0) L 08/23/23 04:00 MCV 102.4 fL (80.0-100.0) H 08/23/23 04:00 MCH 34.3 pg (27.0-34.0) H 08/23/23 04:00 MCHC 33.5 g/dL (33.0-35.0) 08/23/23 04:00 RDW 13.1 % (11.6-16.5) 08/23/23 04:00 Plt Count 209 X10^3/uL (150.0-450.0) 08/23/23 04:00 Plt Count Comment Adequate (ADEQUATE) 08/20/23 04:50 MPV 7.3 fL (7.4-11.0) L 08/23/23 04:00 Neut % (Auto) 63.0 % (42.0-75.0) 08/23/23 04:00 Lymph % (Auto) 27.1 % (21.0-51.0) 08/23/23 04:00 [place] % (Auto) 8.6 % (0.0-13.0) 08/23/23 04:00 Eos % (Auto) 1.0 % (0.9-2.9) 08/23/23 04:00 Baso % (Auto) 0.3 % (0.2-1.0) 08/23/23 04:00 Neut # (Auto) 4.0 x10^3/uL (2.2-4.8) 08/23/23 04:00 Lymph # (Auto) 1.7 X10^3/uL (1.3-2.9) 08/23/23 04:00 [place] # (Auto) 0.5 x10^3/uL (0.3-0.8) 08/23/23 04:00 Eos # (Auto) 0.1 x10^3/uL (0.0-0.2) 08/23/23 04:00 Baso # (Auto) 0.0 X10^3/uL (0.0-0.1) 08/23/23 04:00 Absolute Nucleated RBC 0.0 /100WBC 08/23/23 04:00 Plt Morphology Comment Normal (NORMAL) 08/20/23 04:50 RBC Morphology Normal (NORMAL) 08/20/23 04:50 Sodium 139 mmol/L (136-145) 08/23/23 04:00 Corrected Sodium TNP 08/23/23 04:00 Potassium 3.6 mmol/L (3.5-5.1) 08/23/23 04:00 Chloride 104 mmol/L (98-107) 08/23/23 04:00 Carbon Dioxide 33.1 mmol/L (21-32) H 08/23/23 04:00 BUN 10 mg/dL (7-18) 08/23/23 04:00 Creatinine 0.66 mg/dL (0.55-1.02) 08/23/23 04:00 Est GFR (MDRD) Af Amer > 60 (>60) 08/23/23 04:00 Est GFR (MDRD) Non-Af > 60 (>60) 08/23/23 04:00 Glucose 88 mg/dL (65-99) 08/23/23 04:00 Calcium 8.2 mg/dL (8.5-10.1) L 08/23/23 04:00 Corrected Calcium 9.4 mg/dL (8.5-10.1) 08/23/23 04:00 Magnesium 1.9 mg/dL (2.0-2.9) L 08/23/23 04:00 Total Bilirubin 0.50 mg/dL (0.2-1.0) 08/23/23 04:00 AST 51 Units/L (15-37) H 08/23/23 04:00 ALT 38 Units/L (12-78) 08/23/23 04:00 Alkaline Phosphatase 69 Units/L (46-116) 08/23/23 04:00 Total Protein 5.7 g/dL (6.4-8.2) L 08/23/23 04:00 Albumin 2.5 g/dL (3.4-5.0) L 08/23/23 04:00 Globulin 3.2 g/dL (2.5-4.5) 08/23/23 04:00 Albumin/Globulin Ratio 0.8 Ratio (1.1-2.1) L 08/23/23 04:00 Lipase 48 Units/L (73-393) L 08/18/23 15:30 Vitamin B12 1260 pg/mL (193-986) H 08/21/23 10:10 Folate 19.5 ng/mL (>8.6) 08/21/23 10:10 Specimen Type Clean catch urine 08/18/23 17:06 Urine Color Straw (YELLOW) 08/18/23 17:06 Urine Appearance Clear (CLEAR) 08/18/23 17:06 Urine pH 7.0 (5.0 - 8.0) 08/18/23 17:06 Ur Specific [place] 1.015 (1.000-1.030) 08/18/23 17:06 Urine Protein Negative (NEGATIVE) 08/18/23 17:06 Urine Glucose (UA) Negative (NEGATIVE) 08/18/23 17:06 Urine Ketones Negative (NEGATIVE) 08/18/23 17:06 Urine Blood Negative (NEGATIVE) 08/18/23 17:06 Urine Nitrite Negative (NEGATIVE) 08/18/23 17:06 Urine Bilirubin Negative (NEGATIVE) 08/18/23 17:06 Urine Urobilinogen Normal (NORMAL) 08/18/23 17:06 Ur Leukocyte Esterase Negative (NEGATIVE) 08/18/23 17:06 Reason For Visit: INCARCERATED LEFT INGUINAL HERNIA Discharge Date Discharge Date: 08/23/23 Discharge Diagnosis All Active Problems (Updated 08/19/23 @ 15:12 by CHERRY MARAVILLA) Dilated aortic root (Acute) Aortic insufficiency (Acute) Hypertensive heart disease (Acute) Cystitis (Acute) Pre-op evaluation (Acute) Chest pain (Acute) Obesity (Acute) Incarcerated hernia (Acute) Hypertension (Acute) Trochanteric bursitis of right hip (Acute) Fracture of tibial plateau, closed (Acute) Bowel obstruction (Acute) Plan of Treatment: Continue with present treatment and follow up plan. Pt is to keep follow up appointment as instructed and take medications as ordered. Discharge Medications Discharge Medications: No Known Drug Allergies Allergy (Unknown, Verified 08/11/23 15:45) New Prescriptions oxycodone-acetaminophen 5 mg-325 mg tablet (Percocet) 1 tab PO Q4H PRN 30 days #30 tabs 08/23/23 [Rx] Discharge Disposition Discharge Disposition: Home Discharge Condition: Stable Discharge Plan Discharge Plan Hospital Course: Patient is a 57-year-old female past medical history of DDD, Hypertension, SUSAN, OA, admitted for incarcerated ventral hernia. General surgery-Dr Escalera was consulted. Pt is status post surgical repair of ventral hernia and is doing well. J/P drain removed and incisional wound healing well. Pt discharged in stable condition. Instructed to follow up with general surgery and pcp in 1 week. Patient Disposition: 01 HOME, SELF-CARE Condition: Stable Health Concerns: Post Hospitalization: new medications and changes needed to prevent readmission or further decline. Pt educated and given instructions on all concerns. Care Plan Goals: Problem: Chest Pain Goals: Chest pain improving/resolved Instructions: Contact your physician or report to the closest Emergency Department if your chest pain returns or worsens. Take medications as prescribed. Follow up with your primary doctor as instructed. Plan of Treatment: Continue with present treatment and follow up plan. Pt is to keep follow up appointment as instructed and take medications as ordered. Prescriptions: New oxycodone-acetaminophen [Percocet] 5-325 mg Tablet 1 tab PO Q4H MDD 4 PRN30 Days Qty: 30 0RF No Action venlafaxine 150 mg capsule,extended release 24hr 150 mg PO QDAY 30 Days Qty: 30 3RF pantoprazole 40 mg tablet,delayed release (DR/EC) 40 mg PO QDAY 30 Days Qty: 60 3RF Rx Instructions: FreeTextSi (one) Tablet daily; Refills: 3; Provider: Saige Young famotidine 20 mg tablet 20 mg PO QDAY Qty: 30 2RF lisinopril 20 mg tablet 20 mg PO QDAY 30 Days Qty: 30 2RF Rx Instructions: FreeTextSi (one) Tablet daily; Refills: 3; Provider: Saige Young hydrocodone-acetaminophen 10-325 mg tablet 1 tab PO QID MDD 4 30 Days Qty: 120 0RF Rx Instructions: FreeTextSi (one) Tablet four times daily, as needed; Refills: 0; Provider: Saige Young zolpidem [Ambien] 10 mg tablet 10 mg PO HS MDD 1 30 Days Qty: 30 1RF Rx Instructions: FreeTextSi (one) Tablet at bedtime; Refills: 2; Provider: Saige Young phentermine [Adipex-P] 37.5 mg tablet 37.5 mg PO QDAY MDD 1 30 Days Qty: 30 1RF Rx Instructions: must administer 30 minutes before or 1-2 hours after breakfast gabapentin 600 mg tablet 600 mg PO BID 30 Days Qty: 60 0RF Rx Instructions: FreeTextSi (one) Tablet two times daily, as needed; Refills: 3; Provider: Saige Young Mounjaro 10 mg/0.5 mL pen injector 10 mg subcut QWEEK 30 Days Qty: 2 3RF Follow ups/Referrals Follow ups/Referrals: JAYDA LOGAN [STAFF PHYSICIAN] - 08/31/23 11:00 am Instructions Instructions: Hernia, Adult, Hernia, Adult, [id number], Open Hernia Repair, Adult, Care After, [id number] Activity Restrictions/Additional Instructions: Incentive Spirometer upon discharge No lifting greater 10 pounds 6 weeks Stand Alone Forms: Excuse From Work or School, Post Hospital Follow Up Care
== END 2023-08-23 15:40 | disposition home or self-care (01) | DRG 351 ==
LOC: ER 15:07 → MED/SURG 15:07 → OBS 15:07 → OBSVTOIN 18:50 → OBS 20:15
PROVIDERS: ADMIT Internal Medicine; ATTEND Family Medicine
DX: K56.690 Other partial intestinal obstruction; K40.30 Unilateral inguinal hernia, with obstruction, without gangrene, not specified as recurrent; Z01.818 Encounter for other preprocedural examination; I77.810 Thoracic aortic ectasia; R10.84 Generalized abdominal pain; E66.8 Other obesity; I35.1 Nonrheumatic aortic (valve) insufficiency; I10 Essential (primary) hypertension; E87.6 Hypokalemia; R10.32 Left lower quadrant pain; R11.2 Nausea with vomiting, unspecified; Z98.84 Bariatric surgery status